=== PATIENT | female | born 1930 | race Caucasian/White ===

== ENCOUNTER 2017-02-13 14:12 | Inpatient (IN) | payer MEDICARE ==
[2017-02-13] MEDS ORDERED: Succinylcholine Chloride 20 MG/ML 10 ml SYRINGE FS ONE (14:19)
[2017-02-13] MEDS ORDERED: Fentanyl 100 MCG/2 ML VIAL ONE ×2 (14:45→15:07)
--- NOTE | 2017-02-13 14:57 | RAD ---
PORTABLE CHEST ONE VIEW: Date: 02-13-17 Time: 2:29 p.m. History: Dyspnea. Unresponsive. FINDINGS: Comparison is made with exam of 08-14-11. A nasogastric tube can be traced into the stomach. The heart size is normal. There is continued eleva tion of the right hemidiaphragm. There are patchy infiltrates in the right lower lobe. No pneumothora x or large effusions were seen. IMPRESSION: Findings are suspicious for aspiration pneumonia. POS: DOUGH
[2017-02-13 15:00] LABS: Actual Bicarbonate (HCO3a) 25.2 mEq/L (22-26); Base Excess (BEa) 0.2 mEq/L (0 (+/-) 2.5); CO2 Tension 42.3 mmHg (35.0-45.0); Calcium, Ionized 1.3 mmol/L (1.12-1.30); Hematocrit-ABG 33.5 % (36.0-47.0); Hemoglobin (Hb) 12.8 g/dL (12.0-16.0); O2 Tension (PaO2) 55.8 mmHg (80.0-100.0); pH, Arterial 7.39 (7.35-7.45)
[2017-02-13] MEDS ORDERED: fentaNYL Citrate/PF 2,000 MCG in Sodium Chloride 0.9% 60 ML IV SCH (15:00)
[2017-02-13 15:03] LABS: Analyzer IN Cardio ER; Puncture Site RBRACH
[2017-02-13 15:05] LABS: ALV-art Gradient 106.725 (0-20)
[2017-02-13 15:09] LABS: Mean Corpuscular HGB CONC 30.4 g/dL (32.0-36.0); Mean Corpuscular Hemoglobin 28.7 pg (27.0-31.0); Mean Corpuscular Volume 94.5 fl (81.0-99.0); Mean Platelet Volume 10.1 fL (7.4-10.4); Platelet Count 251 thou/uL (130-400); RBC Distribution Width 14.4 % (11.5-14.5); Red Blood Cell (RBC) Count 4.53 mill/uL (4.20-5.40); White Blood Cell (WBC) Count 24.8 thou/uL (4.8-10.8)
[2017-02-13] MEDS ORDERED: Acetaminophen 650 MG Suppository ONE (15:29)
[2017-02-13 15:38] LABS: CKMB 1.7 ng/mL (0-6.6); Troponin I 0.083 ng/mL (< 0.028)
[2017-02-13 15:39] LABS: ALT (SGPT) 10 U/L (8-55); AST (SGOT) 15 U/L (5-34); Albumin 2.7 g/dL (3.4-4.8); Alkaline Phosphatase 43 U/L (40-150); Anion Gap 18 mmol/L (10-20); BUN (Urea Nitrogen) 55 mg/dL (9.8-20.1); Bilirubin, Total 1.2 mg/dL (0.2-1.2); CK (CPK) 234 U/L (29-168); Calc. Creatinine Clearance 0 mL/min (70-130); Calcium 9.7 mg/dL (7.8-10.44); Carbon Dioxide 25 mmol/L (23-31); Chloride 124 mmol/L (98-107); Estimated GFR-MDRD 46; Globulin 3.6 g/dL (2.4-3.5); Glucose 136 mg/dL (83-110); Potassium 3.5 mmol/L (3.5-5.1); Protein, Total 6.3 g/dL (6.0-8.3); Sodium 163 mmol/L (136-145)
[2017-02-13] MEDS ORDERED: Vancomycin HCl 500 MG in Sodium Chloride 0.9% 100 ML IVPB SCH ×2 (15:45→20:00)
[2017-02-13 16:06] LABS: Band 7 % (5-11); Lymphocytes 14 % (21-51); MDiff Complete? YES; Monocytes 7 % (0-10); Neutrophil 72 % (42-75); PLT Morphology Comment Appears Adequate
[2017-02-13 16:11] LABS: Bilirubin Small (Negative); Blood, Urine Trace (Negative); Glucose, Urine (Dipstick) Negative (Negative); Leukocyte Negative (Negative); Nitrite Positive (Negative); Protein, Urine (Dipstick) Trace mg/dL (Neg-Trace); Specific Gravity, Urine 1.025 (1.005-1.030); pH, Urine 5.5 (5.0-9.0)
[2017-02-13 16:13] LABS: Clarity CLOUDY (Clear)
[2017-02-13 16:18] LABS: Bacteria/HPF 4+ HPF (None Seen); Hyaline Casts/LPF 4-6 HYALINE CAST LPF (0-3 Hyaline); RBC/HPF 0-3 HPF (0-3); WBC/HPF 0-3 HPF (0-3)
[2017-02-13] MEDS ORDERED: Acetaminophen 650 MG Suppository PR PRN (17:36)
[2017-02-13] MEDS ORDERED: Mag-Al 1200 mg/1200 mg/30 ML UDCUP PO PRN ×2 (17:36)
[2017-02-13] MEDS ORDERED: hydrALAZINE 20 MG/ML VIAL SLOW IVP PRN (17:36)
[2017-02-13] MEDS ORDERED: Acetaminophen 325 MG TAB PO PRN (17:36)
[2017-02-13] MEDS ORDERED: Calcium Carbonate 500 MG ChewTAB PO PRN (17:36)
[2017-02-13] MEDS ORDERED: Ondansetron HCl/PF 4 MG/2 ML Vial IVP PRN ×2 (17:36)
[2017-02-13] MEDS ORDERED: Bisacodyl 5 MG TAB PO PRN ×2 (17:36)
[2017-02-13] MEDS ORDERED: CCU Electrolyte Replacement 1 EACH IVPB ONE (17:36)
[2017-02-13] MEDS ORDERED: Milk Of Magnesia 30 ML UDCUP PO PRN (17:36)
[2017-02-13] MEDS ORDERED: Norepinephrine 8 MG/0.9% NS 250 ML IVPB PRN (17:36)
[2017-02-13] MEDS ORDERED: Lacri-Lube Opth Oint 3.5 GM TUBE EA EYE PRN (17:36)
[2017-02-13] MEDS ORDERED: Senokot 8.6 MG TAB PO PRN (17:36)
[2017-02-13] MEDS ORDERED: Potassium Phosphate 9 MMOL in Sodium Chloride 0.9% 100 ML IVPB PRN (17:53)
[2017-02-13] MEDS ORDERED: Potassium Chloride 20 MEQ TAB PO PRN (17:53)
[2017-02-13] MEDS ORDERED: Potassium Phosphate 15 MMOL in Sodium Chloride 0.9% 250 ML 250 ML IV PRN (17:53)
[2017-02-13] MEDS ORDERED: Potassium Chloride 40 MEQ in Sodium Chloride 0.9% 250 ML 250 ML IVPB PRN (17:53)
[2017-02-13] MEDS ORDERED: Potassium Chloride 40 MEQ in Premix Bag 1 BAG IVPB PRN (17:53)
[2017-02-13] MEDS ORDERED: Magnesium 2 GM/NS 0.9% 100 ML 2 GM in Premix Bag 1 BAG IVPB PRN (17:53)
[2017-02-13] MEDS ORDERED: Potassium Phosphate 12 MMOL in Sodium Chloride 0.9% 250 ML 250 ML IV PRN (17:53)
[2017-02-13] MEDS ORDERED: Magnesium Oxide 400 MG TAB PO PRN ×2 (17:53)
[2017-02-13] MEDS ORDERED: Propofol 1,000 MG/100 ML VIAL IV PRN (17:56)
[2017-02-13] MEDS ORDERED: DISCONTINUE PREVIOUS NARCOTIC PAIN MEDICATIONS AND BENZODIAZEPINES FS SCH (17:56)
[2017-02-13] MEDS ORDERED: Morphine 2 MG/ML SYRINGE SLOW IVP PRN (17:56)
[2017-02-13] MEDS ORDERED: Lorazepam 2 MG/ML VIAL SLOW IVP PRN (17:56)
[2017-02-13] MEDS ORDERED: Piperacillin/Tazobactam 3.375 GM in Sodium Chloride 0.9% 100 ML IVPB SCH (18:00)
[2017-02-13] MEDS ORDERED: Prevnar 13-Val Conj/PF 0.5 ML SYRINGE IM ONE (18:45)
[2017-02-13] MEDS ORDERED: FLU VACC TS2017-18 (>65YR) 0.5 ML SYRINGE IM ONE (18:45)
[2017-02-13] MEDS: Piperacillin-Tazo-Dextrose,Iso 3.375 GM in Premix Bag 1 BAG IVPB SCH ×2 (19:26→23:52)
[2017-02-13] MEDS: Dextrose 5% in Water 1,000 ML IV SCH (19:35)
[2017-02-13] MEDS: Albumin 25% 25 GM/100 ML BOT IVPB SCH (19:44)
[2017-02-13 20:18] LABS: Lactic Acid 4.5 mmol/L (0.5-2.2)
[2017-02-13] MEDS ORDERED: Vancomycin HCl 1 GM in Premix Bag 1 BAG IVPB SCH (21:00)
[2017-02-13] MEDS: Sodium Chloride 0.45% 1,000 ML IV SCH (21:24)
[2017-02-13 23:09] LABS: Sodium 162 mmol/L (136-145)
--- NOTE | 2017-02-13 23:22 | PRG ---
DATE OF SERVICE: 02/13/2017 Ms. Parisi is a very cachectic 86-year-old female. She has an absolutely wonderful who has been involved in her care. Her [id number] was at the bedside and hhfmmm-df-lya was at the [facility] as well. Ms. Parisi lives in a care environment and has for the past 3 years. Her has sadly watched her slowly wasting away for the past 3 years. She is chronically bedridden and occasio faiza put up in a reclining type chair. She does not eat much. The tells me for the past mo nth pretty much every time she eats or drinks anything, she coughs and chokes and has difficulty. She presented with hypoxemia after coughing and choking spell and was subsequently transferred here. She has been intubated. PAST MEDICAL HISTORY: Remarkable for TIA in the past, Parkinson's disease. She has never been hospi talized here before. SOCIAL HISTORY: She is a nonsmoker, nondrinker. She has no drug history. ALLERGIES: She has no drug allergies. MEDICATIONS: Have been reviewed. She is apparently on aspirin, clomipramine, prednisone, Remeron, t razodone, and Xanax. REVIEW OF SYSTEMS: Not obtainable. PHYSICAL EXAMINATION: GENERAL: She is intubated and not awake. VITAL SIGNS: Blood pressure 104/43, heart rate 129, respiratory rate is in the 20s. HEENT: Pupils are equal. Sclerae is anicteric. She is extremely cachectic with temporal muscle was ting. NECK: Without lymphadenopathy. LUNGS: Remarkable for coarse equal breath sounds. HEART: Regular rhythm, no S3. ABDOMEN: Soft and nontender, no guarding, no rigidity. EXTREMITIES: Without asymmetry. She is extremely cachectic. LABORATORY FINDINGS: Chest radiograph shows a chronically elevated hemidiaphragm. All films were co mpared. She does have an alveolar infiltrate or wide base, white count 24.8, hemoglobin 13, platelet s 251. Sodium 163, potassium 3.5, chloride 124, bicarbonate 25, BUN 55, creatinine 1.12, glucose 136 . IMPRESSION: 1. Pneumonia. 2. Severe intravascular volume depletion secondary to her bedridden state and decreased p.o. intake. 3. Cachexia with protein calorie malnutrition secondary to her advanced clinical state. 4. Hyperosmolar state secondary to intravascular volume depletion. 5. Aspiration by history. I had a long discussion with her who appears to be a wonderful accreditation manager. She will be volume resuscitated and mechanically ventilated. I have encouraged her to contemplate do not resus citate status. I have also encouraged him to not consider placing a feeding tube given her bedridden state. I truly believe this is the end of her life and this is her last admission. If we successfu lly wean her from mechanical ventilation. If she survives, I [facility] and this would be the best option as I have explained to the family. I spent probably 40 minutes explaining all this to the family and trying to reassure the that she he has done a wonderful job of caring for her. I do believe she will survive the mechanical ventilation and the hypotension as well as volume resuscitation. I do not believe she will survive the hospital unless it is to go to an inpatient hospice environment. Her was very receptive to my input. Palliative care should be consulted. It is very sad for him that he is watching his slowly pass away and this probably will truly be her last admission. Critical care time independent of the time spent counseling the family was 35 minutes.
[2017-02-14] MEDS: Piperacillin-Tazo-Dextrose,Iso 3.375 GM in Premix Bag 1 BAG IVPB SCH ×3 (00:04→18:21)
[2017-02-14] MEDS: Albumin 25% 25 GM/100 ML BOT IVPB SCH ×4 (01:24→20:16)
[2017-02-14] MEDS: Dextrose 5% in Water 1,000 ML IV SCH ×2 (02:42→09:00)
[2017-02-14] MEDS: Sodium Chloride 0.45% 1,000 ML IV SCH ×4 (02:43→12:35)
[2017-02-14 05:00] LABS: ALT (SGPT) 8 U/L (8-55); AST (SGOT) 15 U/L (5-34); Albumin 3.1 g/dL (3.4-4.8); Alkaline Phosphatase 32 U/L (40-150); Anion Gap 11 mmol/L (10-20); BUN (Urea Nitrogen) 40 mg/dL (9.8-20.1); Bilirubin, Total 1.7 mg/dL (0.2-1.2); Calc. Creatinine Clearance 30 mL/min (70-130); Calcium 7.7 mg/dL (7.8-10.44); Carbon Dioxide 22 mmol/L (23-31); Chloride 121 mmol/L (98-107); Estimated GFR-MDRD 75; Globulin 2.2 g/dL (2.4-3.5); Glucose 76 mg/dL (83-110); Potassium 2.5 mmol/L (3.5-5.1); Protein, Total 5.3 g/dL (6.0-8.3); Sodium 151 mmol/L (136-145)
[2017-02-14 05:13] LABS: Band 22 % (5-11); Hemoglobin 9.6 g/dL (12.0-16.0); Lymphocytes 18 % (21-51); MDiff Complete? YES; Mean Corpuscular HGB CONC 30.8 g/dL (32.0-36.0); Mean Corpuscular Hemoglobin 28.9 pg (27.0-31.0); Mean Corpuscular Volume 93.7 fl (81.0-99.0); Mean Platelet Volume 10.4 fL (7.4-10.4); Monocytes 3 % (0-10); Neutrophil 57 % (42-75); Platelet Count 124 thou/uL (130-400); RBC Distribution Width 14.2 % (11.5-14.5); Red Blood Cell (RBC) Count 3.34 mill/uL (4.20-5.40); White Blood Cell (WBC) Count 13.5 thou/uL (4.8-10.8)
--- NOTE | 2017-02-14 06:46 | CON ---
DATE OF CONSULTATION: 02/13/2017 REQUESTING PHYSICIAN: Cassie Cotto MD REASON FOR CONSULTATION: Severe hypernatremia. IMPRESSION: 1. Severe hypernatremia in the context of . 2. Hypotension - possible sepsis. 3. Advanced age. PLAN: 1. Aggressive fluid resuscitation. Ordinarily, this patient given the hemodynamic instability of this patient, the primary target will be to stabilize hemodynamics normal saline to half no rmal saline boluses will be appropriate. Subsequently, the patient will be on half normal saline ___ __ mL per hour. 2. Repeat sodium in order to re-evaluate and determine correction of her hypernatremia. HISTORY OF PRESENT ILLNESS: History is that of an 86-year-old female patient, who was brought in wit h a history of altered mental status. The patient initially was . In any case, the patient was noted with a sodium level up to 160 consultation . PAST MEDICAL HISTORY: . PAST SURGICAL HISTORY: Could not be obtained from this patient. REVIEW OF SYSTEMS: Could not be done. LABORATORY DATA: Sodium level of 163, chloride 124, creatinine 1.12, BUN of 55. . PHYSICAL EXAMINATION: GENERAL: The patient was found to be sedated and intubated, noted with very hemodynamics. VITAL SIGNS: Blood pressure . HEENT: Unremarkable. . CARDIOVASCULAR: First and second . RESPIRATORY SYSTEM: Clear to auscultation. . LYMPHATICS: No peripheral lymphadenopathy. . SUMMARY: An 86-year-old woman who was brought in with mental status change and was admitted .
[2017-02-14 07:34] LABS: Actual Bicarbonate (HCO3a) 20.6 mEq/L (22-26); Base Excess (BEa) -3.6 mEq/L (0 (+/-) 2.5); Calcium, Ionized 1.1 mmol/L (1.12-1.30); Hemoglobin (Hb) 9.1 g/dL (12.0-16.0); O2 Tension (PaO2) 86.5 mmHg (80.0-100.0)
[2017-02-14 07:35] LABS: Puncture Site RRA
[2017-02-14] MEDS ORDERED: Sterile Water 10 ML ONE (08:35)
[2017-02-14] MEDS: Enoxaparin Sodium 30 MG/0.3 ML SYRINGE SC SCH (08:59)
--- NOTE | 2017-02-14 09:03 | HP ---
DATE OF ADMISSION: 02/13/2017 PRIMARY CARE PHYSICIAN: Renae Bey M.D. CHIEF COMPLAINT: Choking on food. HISTORY OF PRESENTING ILLNESS: Ms. Parisi is an 86-year-old female with past medical his tory of Parkinson's disease as well as TIA who presented from [facility] with the above-me ntioned symptoms. History is mainly obtained by the patient's present in the room as the pat ient is currently intubated and sedated. Electronic medical records have been reviewed and the case has been discussed with the admitting ER physician, Dr. Dobbs. According to Ms. Parisi's , she lives in [facility] and is on a thickened pureed diet. She had one episode of choking on the food about 2 months ago and was brought to the emergency room and was cleared without having any pneumonia. This happened again today and she looked bad wit h shortness of breath. Upon urging of the , [facility] sent [facility] to [facility] emergen cy room where she was found to be in acute respiratory distress with oxygen saturation in the high 80 s on nonrebreather as well as tachycardia. She was promptly intubated in the emergency room and is n ow being admitted to the Critical Care Unit for further evaluation. In the emergency room, further workup revealed leukocytosis as well as lactic acidosis. Her chest x- ray was consistent with right-sided infiltrate, possibly aspiration pneumonia. She is severely dehyd rated with hypernatremia and hyperchloremia. Her urinalysis is also positive for evidence of infecti on. According to the family, the patient is basically bedbound or wheelchair bound. She has advanced Par kinson's and is not able to take care of herself or feed herself. She is largely nonverbal. The patient is currently FULL CODE during my discussion as well as ER physician's discussion with the . PAST MEDICAL HISTORY: 1. Parkinson's disease. 2. History of TIA. PAST SURGICAL HISTORY: Unable to verify. According to , she did not have any surgeries done. PSYCHIATRIC HISTORY: Anxiety and depression. SOCIAL HISTORY: No history of drug, tobacco or alcohol abuse. She is a resident [facility]. FAMILY HISTORY: Unable to verify as the patient is intubated and sedated. is unable to prov kristin much information either. ALLERGIES: No known medication allergies. CURRENT MEDICATIONS: As listed in the ER records include aspirin 81 mg daily, clomipramine 25 mg mariaelena ry other day and prednisone 5 mg daily. REVIEW OF SYSTEMS: Unable to obtain due to intubated and sedated state. PHYSICAL EXAMINATION: VITAL SIGNS: Upon presentation, blood pressure 104/43, pulse of 129, respirations 25, temperature 10 1.7, blood pressure most recent 88/42. GENERAL: The patient appears cachectic. She is intubated and sedated. No acute distress. HEENT: Frontal wasting noticed. Pupils are reactive to light bilaterally in pinpoint. Head is norm ocephalic, atraumatic. Mucous membrane is dry. NECK: Supple without any lymphadenopathy, JVD or bruit. CHEST: Evaluation shows decreased breath sounds bilaterally with diffuse rhonchi. Regular rate and rhythm is regular without any murmur, rubs or gallop. ABDOMEN: Soft, nondistended. No hepatosplenomegaly. EXTREMITIES: Free of any cyanosis, clubbing, or edema. NEUROLOGIC: Hypotonia due to sedation; otherwise, limited exam. SKIN: Free of any rashes or bruises. IMAGING DATA AND LABORATORY DATA: 1. A 12-lead EKG by my review shows sinus tachycardia with heart rate of 134 with normal T waves. 2. Chest x-ray by my review shows patchy infiltrate in the right lower lobe. 3. CBC shows WBCs 24.8 with 72% neutrophils, otherwise unremarkable. 4. Her ABG initially showed pH of 7.3 with pCO2 of 42 and pO2 of 55. 5. Serum chemistries showed sodium 163, chloride 124, BUN 55, creatinine 1.12. Lactic acid is eleva ivonne at 4.2, blood sugar 136. BNP normal at 95. Troponin 0.083 with normal CK-MB and creatinine markel se is 234. 6. Urinalysis shows positive nitrite, squamous epithelial cells along with +4 bacteria. IMPRESSION AND PLAN: 1. Severe sepsis likely secondary to aspiration pneumonia. At this time, she will be empirically st arted on broad spectrum IV antibiotics. She has received Levaquin, vancomycin and Zosyn in the emerg ency room, and we will continue that. She has been intubated for hypoxic respiratory failure and ivan l be admitted to the Critical Care Unit and we will consult Pulmonary Medicine for the vent managemen t as well. Continue IV fluids per the sepsis protocol. Prognosis is guarded at this time. Blood cu ltures have been obtained and we will follow the results. Urine cultures will also be sent. We will also check influenza by PCR. 2. Acute respiratory hypoxic failure likely secondary to pneumonia. Ventilator care as above. CCU protocol will be followed for electrolyte replacement. Vent weaning as per Pulmonary Critical Care M icine. Dr. Carreno has been notified and has seen the patient. 3. Hyperchloremia and hypernatremia. This is evidence of severe dehydration. The patient is on thi ckened water due to dysphagia precautions. She will be resuscitated with D5 water for now. We will also consult Nephrology to follow along. Mild acute kidney injury also collaborates to dehydration. We will monitor her numbers closely. 4. Elevated troponin. This is likely secondary to demand ischemia from severe sepsis. The patient' s denies any previous history of cardiac disease. We will continue to trend serial cardiac e nzymes. 5. Lactic acidosis due to severe sepsis. 6. Code status: FULL CODE. I have discussed this with her and at this time he wants everyt chencho done. 7. Deep venous thrombosis and gastrointestinal prophylaxis. 8. Continue supportive care. Add p.r.n. medication orders. DISPOSITION: Ms. Parisi is being admitted to the Critical Care Unit for acute hypoxic respiratory failure due to aspiration pneumonia and severe sepsis. Prognosis is rather guarded at this point. Andria sanford has been notified with regards to this and he wants to move forward with aggressive therapy at this time. Further management will depend upon her clinical course.
--- NOTE | 2017-02-14 09:12 | RAD ---
SEMIUPRIGHT PORTABLE CHEST 1 VIEW: HISTORY: An 86-year-old female with respiratory insufficiency. FINDINGS: NG tube and endotracheal tubes are in position. There are bilateral interstitial and alveolar nodula r opacity changes with some confluence in the right mid lung zone and right lower lobe, certainly wor risome for pneumonia as well as some left lower lobe retrocardiac parenchymal change. There appears to be slightly worsening of the confluent alveolar parenchymal process in the right lung. IMPRESSION: Progressive bilateral parenchymal changes with worsening confluence in the right mid lung zone certai nly worrisome for bilateral pneumonia. Continued short-term followup for clearing. POS: TPC
[2017-02-14] MEDS: Famotidine/PF 20 mg/2ml Vial SLOW IVP SCH (09:54)
[2017-02-14 11:43] LABS: Anion Gap 12 mmol/L (10-20); BUN (Urea Nitrogen) 28 mg/dL (9.8-20.1); Calc. Creatinine Clearance 38 mL/min (70-130); Carbon Dioxide 18 mmol/L (23-31); Chloride 115 mmol/L (98-107); Estimated GFR-MDRD Greater than 90; Sodium 142 mmol/L (136-145)
[2017-02-14 11:53] LABS: Glucose 46 mg/dL (83-110); Potassium 2.9 mmol/L (3.5-5.1)
[2017-02-14] MEDS ORDERED: Dextrose 50% Abboject 50 ML SYRINGE ONE (12:45)
--- NOTE | 2017-02-14 12:49 | PRG ---
DATE OF SERVICE: 02/14/2017 Ms. Parisi is not awake. She is mechanically ventilated. PHYSICAL EXAMINATION: VITAL SIGNS: Blood pressure 120/50, heart rate 113, respiratory rate 22, oximetry is 95, she is afeb rile. LUNGS: Lungs remarkable for coarse equal breath sounds, more so on the right. HEART: Regular rhythm. ABDOMEN: Abdomen is Soft. Chest radiograph shows bilateral infiltrates now. Her x-ray has worsened. White count 13.5, hemoglobin 9.6, platelets 124. Sodium 142, potassium 2.9, chloride 115, bicarbonate 18, BUN 20, creatinine 0.57, glucose 46. IMPRESSION: 1. Respiratory failure secondary to advanced dementia with weakness, deconditioning and aspiration p neumonia/ 2. Anemia of chronic disease. 3. Hypokalemia. 4. Hyperchloremic acidosis with volume resuscitation. 5. Hypoglycemia, most likely associated with decreased glycogen stores and clinical sepsis. Palliative Care has been consulted. I believe ventilation is reasonable for 2-3 days. I have talked to the and I have explained to him that the best option would be to ventilate her 2-3 days, then withdraw care and see how she does. I have explained to him that I would anticipate she would n ot survive this hospitalization. Family is contemplating do not resuscitate status and everything th at I discussed last night in the emergency department. Critical care time was 30 minutes.
[2017-02-14] MEDS: Dextrose 5 %-0.45 % NaCl 1,000 ML IV SCH (12:50)
--- NOTE | 2017-02-14 15:09 | PDOC.PN ---
- Subjective Encounter Start Date: 02/14/17 Encounter Start Time: 15:07 Subjective: remains intubated w/o acute events overnight - Objective MAR Reviewed: Yes Vital Signs & Weight: Vital Signs (12 hours) Temp Pulse Resp BP Pulse Ox 02/14/17 14:50 104 H 113/52 L 02/14/17 14:49 94 18 99 02/14/17 10:28 104 H 139/51 L 02/14/17 10:27 105 H 23 H 97 02/14/17 07:13 98 130/52 L 02/14/17 07:11 98 19 99 02/14/17 06:00 99.1 F 02/14/17 04:00 17 Weight Admit Weight 76 lb Weight 76 lb 0.952 oz Most Recent Monitor Data Heart Rate from ECG 90 NIBP 106/48 NIBP BP-Mean 74 Respiration from ECG 22 SpO2 100 I&O: 02/13/17 02/14/17 02/15/17 06:59 06:59 06:59 Intake Total 3817 Output Total 215 Balance 3602 Result Diagrams: 02/14/17 04:10 02/14/17 11:13 Additional Labs: Accuchecks 02/14/17 13:14 POC Glucose 190 H Microbiology 02/13/17 21:31 Nasopharynx Influenza Types A,B Direct EIA - Final 02/13/17 16:47 Venous blood - Right Foot Blood Culture - Preliminary Specimen has been received and culture in progress. No Growth to date. 02/13/17 16:47 Venous blood - Left Foot Blood Culture - Preliminary Specimen has been received and culture in progress. No Growth to date. Phys Exam - Physical Examination Constitutional: NAD HEENT: PERRLA, moist MMs, sclera anicteric ETT Neck: no JVD Respiratory: no wheezing, no rales, no rhonchi coarse breath sounds b/l Cardiovascular: RRR, no significant murmur Gastrointestinal: soft, non-tender, no distention, positive bowel sounds Musculoskeletal: no edema, pulses present not moving Dx/Plan (1) Acute respiratory failure Code(s): J96.00 - ACUTE RESPIRATORY FAILURE, UNSP W HYPOXIA OR HYPERCAPNIA Status: Acute (2) Sepsis Code(s): A41.9 - SEPSIS, UNSPECIFIED ORGANISM Status: Acute (3) PNA (pneumonia) Code(s): J18.9 - PNEUMONIA, UNSPECIFIED ORGANISM Status: Acute Qualifiers: Pneumonia type: aspiration pneumonia Laterality: bilateral (4) Hypernatremia Code(s): E87.0 - HYPEROSMOLALITY AND HYPERNATREMIA Status: Acute (5) Hypokalemia Code(s): E87.6 - HYPOKALEMIA Status: Acute (6) CARLOS (acute kidney injury) Code(s): N17.9 - ACUTE KIDNEY FAILURE, UNSPECIFIED Status: Acute (7) Hypoglycemia Code(s): E16.2 - HYPOGLYCEMIA, UNSPECIFIED Status: Acute (8) Parkinson disease Code(s): G20 - PARKINSON'S DISEASE Status: Acute - Plan ravi catheter, continue antibiotics, respiratory therapy, DVT proph w/SCDs severely ill. would not be unexpected.cont full supportive care for no -: Vent per PCCM. -: cont broad sp[ectrun IV ABx,nebs etc. -: sodium improving w 1/2 NS.nephrology following -: replace & recheck Potassium.check Mag as well * .Renal Fx and leucocytosis improving. * daily labs,CXR etc * Guarded prognosis. * am labs Review of Systems - Review of Systems Other: unobtainable due to intubated state - Medications/Allergies Allergies/Adverse Reactions: Allergies Allergy/AdvReac Type Severity Reaction Status Date / Time No Known Drug Allergies Allergy Verified 02/13/17 17:26 Medications: Current Medications Acetaminophen (Tylenol) 650 mg PO Q4H PRN PRN Reason: Headache/Fever or Pain Acetaminophen (Tylenol) 650 mg [place] Q4H PRN PRN Reason: Headache/Fever or Pain Al Hydroxide/Mg Hydroxide (Maalox) 30 ml PO Q8H PRN PRN Reason: Indigestion Al Hydroxide/Mg Hydroxide (Maalox) 30 ml PO Q6H PRN PRN Reason: Heartburn or Indigestion Albumin Human (Albumin 25%) 25 gm IVPB 0200,0800,1400,2000 [facility] Stop: 02/15/17 20:01 Last Admin: 02/14/17 14:39 Dose: 25 gm Albuterol/Ipratropium (Duoneb) 3 ml NEB [id number] PRN PRN Reason: SOB &/or Wheezing Albuterol/Ipratropium (Duoneb) 3 ml NEB [id number] DIPAK Last Admin: 02/14/17 14:49 Dose: 3 ml Bisacodyl (Dulcolax) 10 mg PO DAILYPRN PRN PRN Reason: Constipation Bisacodyl (Dulcolax) 10 mg PO DAILYPRN PRN PRN Reason: Constipation Calcium Carbonate (Tums) 1,000 mg PO Q4H PRN PRN Reason: Heartburn or Indigestion Clonidine (Catapres) 0.1 mg PO Q4H PRN PRN Reason: Systolic BP > 160 Enoxaparin Sodium (Lovenox) 30 mg SC 0900 [facility] Last Admin: 02/14/17 08:59 Dose: 30 mg Famotidine (Pepcid) 20 mg SLOW IVP DAILY [facility] Last Admin: 02/14/17 09:54 Dose: Not Given Fentanyl Citrate 2,000 mcg/ (Sodium Chloride) 100 mls @ 0 mls/hr IV INF [facility] PRN Reason: As Directed Norepinephrine Bitartrate (Levophed) 250 mls @ 0 mls/hr IVPB PRN PRN; Protocol ; Titrate PRN Reason: To maintain MAP > 65 Potassium Chloride 40 meq/ (Sodium Chloride) 270 mls @ 135 mls/hr IVPB ASDIR PRN PRN Reason: FOR SERUM K+ 2.5 - 3.5 Last Admin: 02/14/17 06:36 Dose: 270 mls Potassium Chloride 40 meq/ (Device) 100 mls @ 50 mls/hr IVPB ASDIR PRN PRN Reason: FOR SERUM K+ 2.5 - 3.5 Magnesium Sulfate 1 gm/ Sodium (Chloride) 102 mls @ 102 mls/hr IV PRN PRN PRN Reason: MAG LEVEL 1.4 - 2.0 Magnesium Sulfate 2 gm/ Device 100 mls @ 100 mls/hr IVPB ASDIR PRN PRN Reason: MAGNESIUM < 1.4 Potassium Phosphate 9 mmol/ (Sodium Chloride) 103 mls @ 25.75 mls/hr IVPB ASDIR PRN PRN Reason: Phosphate 1.0-1.8 Potassium Phosphate 12 mmol/ (Sodium Chloride) 254 mls @ 63.5 mls/hr IV ASDIR PRN PRN Reason: Serum phosphate 0.5-0.9 Potassium Phosphate 15 mmol/ (Sodium Chloride) 255 mls @ 63.75 mls/hr IV ASDIR PRN PRN Reason: Serum Phos < 0.5 Fentanyl Citrate (Fentanyl Bolus) 250 mls @ 0 mls/hr IVPB PRN PRN; As Directed PRN Reason: Breakthrough pain Stop: 03/15/17 17:56 Piperacillin/Tazobactam/ (Dextrose 3.375 gm/ Device) 50 mls @ 100 mls/hr IVPB Q6HR [facility] Last Admin: 02/14/17 12:35 Dose: 50 mls Dextrose/Sodium Chloride (D5 1/2 Ns) 1,000 mls @ 100 mls/hr IV .Q10H [facility] Last Admin: 02/14/17 12:50 Dose: 1,000 mls Lorazepam (Ativan) 2 mg SLOW IVP Q2H PRN PRN Reason: Anxiety to achieve Sandy 2-3 Stop: 03/15/17 17:56 Magnesium Hydroxide (Milk Of Magnesium) 30 ml PO Q8H PRN PRN Reason: Constipation Magnesium Oxide (Magnesium Oxide) 400 mg PO BIDPRN PRN PRN Reason: FOR SERUM MAG 1.4 - 2.0 Magnesium Oxide (Magnesium Oxide) 800 mg PO PRN PRN PRN Reason: FOR SERUM MAG < 1.4 Methylprednisolone Sodium Succinate (Solu-Medrol) 40 mg IVP Q12HR [facility] Last Admin: 02/14/17 08:59 Dose: 40 mg Mineral Oil/White Petrolatum (Lacri-Lube Ointment) 0 gm EA EYE PRN PRN PRN Reason: Dry Eyes Miscellaneous Medication (Phos-Nak) 1 pkt PO TIDPRN PRN PRN Reason: FOR PHOS LEVEL 1.0 - 1.8 Miscellaneous Medication (Phos-Nak) 2 pkt PO TIDPRN PRN PRN Reason: FOR PHOS LEVEL 0.5 - 1.0 Morphine Sulfate (Morphine) 2 mg SLOW IVP Q2H PRN PRN Reason: Breakthrough pain Stop: 03/15/17 17:56 Discontinue Previous Narcotic Pain Medications And Benzodiazepines 1 each FS .ONE [facility] Stop: 03/15/17 17:56 Ondansetron HCl (Zofran) 4 mg IVP Q6H PRN PRN Reason: Nausea/Vomiting Ondansetron HCl (Zofran) 4 mg IVP Q6H PRN PRN Reason: Nausea/Vomiting Potassium Chloride (K-Dur) 40 meq PO ASDIR PRN PRN Reason: FOR SERUM K+ 2.5 - 3.5 Potassium Chloride (Klor-Con) 40 meq PER TUBE ASDIR PRN PRN Reason: FOR SERUM K+ 2.5-3.5 Potassium Chloride (Klor-Con) 40 meq PO Q4HR DIPAK Stop: 02/14/17 17:01 Last Admin: 02/14/17 12:47 Dose: 40 meq Propofol (Diprivan) 1,000 mg IV INF PRN; Protocol PRN Reason: TO ACHIEVE SANDY SCORE 2-3 Stop: 03/15/17 17:56 Senna (Senokot) 2 tab PO HSPRN PRN PRN Reason: Constipation Sodium Chloride (Flush - Normal Saline) 10 ml IVF PRN PRN PRN Reason: Saline Flush
[2017-02-15] MEDS: cloNIDine 0.1 MG TAB PO PRN ×2 (02:20→06:35)
[2017-02-15] MEDS: Albumin 25% 25 GM/100 ML BOT IVPB SCH ×3 (02:20→14:00)
[2017-02-15] MEDS: Piperacillin-Tazo-Dextrose,Iso 3.375 GM in Premix Bag 1 BAG IVPB SCH ×4 (05:01→12:51)
[2017-02-15] MEDS: Dextrose 5 %-0.45 % NaCl 1,000 ML IV SCH ×3 (05:01→15:00)
[2017-02-15 05:54] LABS: ALT (SGPT) 16 U/L (8-55); AST (SGOT) 34 U/L (5-34); Albumin 3.8 g/dL (3.4-4.8); Alkaline Phosphatase 51 U/L (40-150); Anion Gap 15 mmol/L (10-20); BUN (Urea Nitrogen) 21 mg/dL (9.8-20.1); Bilirubin, Total 1.4 mg/dL (0.2-1.2); Calc. Creatinine Clearance 40 mL/min (70-130); Carbon Dioxide 17 mmol/L (23-31); Chloride 121 mmol/L (98-107); Estimated GFR-MDRD 79; Globulin 2.6 g/dL (2.4-3.5); Glucose 190 mg/dL (83-110); Potassium 4.9 mmol/L (3.5-5.1); Protein, Total 6.4 g/dL (6.0-8.3); Sodium 148 mmol/L (136-145)
[2017-02-15 06:31] LABS: Band 23 % (5-11); Hemoglobin 8.9 g/dL (12.0-16.0); Lymphocytes 5 % (21-51); MDiff Complete? YES; Mean Corpuscular HGB CONC 32.2 g/dL (32.0-36.0); Mean Corpuscular Hemoglobin 29.5 pg (27.0-31.0); Mean Corpuscular Volume 91.5 fl (81.0-99.0); Mean Platelet Volume 11.3 fL (7.4-10.4); Monocytes 2 % (0-10); Neutrophil 70 % (42-75); PLT Morphology Comment Appears Decreased; Platelet Count 92 thou/uL (130-400); RBC Distribution Width 14.1 % (11.5-14.5); Red Blood Cell (RBC) Count 3.02 mill/uL (4.20-5.40); White Blood Cell (WBC) Count 12.7 thou/uL (4.8-10.8)
--- NOTE | 2017-02-15 07:06 | PRG ---
SUBJECTIVE: The patient is seen and examined, still on life support. Noted with following vital sig ns. OBJECTIVE: VITAL SIGNS: Hemodynamically stable with blood pressure of 125/78, respiratory rate of 16. HEENT: Remarkable for endotracheal tube in place. CARDIOVASCULAR SYSTEM: First and second heart sounds heard. RESPIRATORY SYSTEM: . DIGESTIVE SYSTEM: Revealed a benign abdomen. Positive bowel sounds. EXTREMITIES: No peripheral edema. SKIN: No new gross rash. LABORATORY INVESTIGATION: Showed a sodium OF 142, potassium of 2.9, bicarb of 18. IMPRESSION: 1. Severe hyponatemia IV fluids. 2. . 3. Sepsis. PLAN: 1. Since sodium has dropped down to 142, we will now change his IV fluid to 100 mL per hour, though continue with D5 half-normal saline.. 2. Aggressively replete the potassium. 3. Further management will be dependent on the clinical course.
[2017-02-15 08:07] LABS: Actual Bicarbonate (HCO3a) 17.2 mEq/L (22-26); Base Excess (BEa) -5.8 mEq/L (0 (+/-) 2.5); Calcium, Ionized 1.1 mmol/L (1.12-1.30); Hematocrit-ABG 24.3 % (36.0-47.0); Hemoglobin (Hb) 8.6 g/dL (12.0-16.0); O2 Tension (PaO2) 148.2 mmHg (80.0-100.0); pH, Arterial 7.45 (7.35-7.45)
[2017-02-15 08:12] LABS: CO2 Tension 25.5 mmHg (35.0-45.0); Puncture Site RBRACH
[2017-02-15 08:13] LABS: ALV-art Gradient 107.125 (0-20)
[2017-02-15] MEDS ORDERED: Sterile Water 10 ML ONE (09:27)
[2017-02-15] MEDS: Famotidine/PF 20 mg/2ml Vial SLOW IVP SCH (09:30)
[2017-02-15] MEDS: Enoxaparin Sodium 30 MG/0.3 ML SYRINGE SC SCH (09:31)
--- NOTE | 2017-02-15 10:36 | RAD ---
PORTABLE CHEST: HISTORY: On ventilator. Shortness of breath. COMPARISON: 02/14/17. FINDINGS: A large right effusion. Bilateral infiltrates. Exam is degraded due to poor positioning. ET tube h as tip just above cosme. NG tube is noted. IMPRESSION: Probably not significantly changed from yesterday given the difference in position. POS: CODI
[2017-02-15] MEDS ORDERED: Labetalol HCl 100 MG/20 ML VIAL SLOW IVP PRN (14:22)
[2017-02-15] MEDS ORDERED: Pancrelipase DR 12000 1 CAP FS PRN (14:33)
[2017-02-15] MEDS ORDERED: Sodium Bicarbonate Tab 325 MG TAB PER TUBE PRN (14:33)
--- NOTE | 2017-02-15 14:34 | PRG ---
DATE OF SERVICE: 02/15/2017 SERVICE: Pulmonary Medicine. INTERVAL HISTORY: The patient is doing fine from a respiratory and cardiovascular standpoint. Blood pressure has been okay. Her heart rate is fine. Her oxygen requirements are actually decreasing. We were able to back off on support off the ventilator. That being said, the big picture is that the patient has essentially end-stage dementia and is nearly bedbound. She has extremely poor functiona l status. She is right at the end of her life. I talked briefly with about this, but he is adamant that if I can keep her alive in her current state for an additional 5-10 years, and that is w hat he would want. PHYSICAL EXAMINATION: VITAL SIGNS: Afebrile with T-max of 99.7. Pulse 106, blood pressure 140/77, respirations 25, satura tion 100% on 27% FiO2 and a PEEP of 5. GENERAL: The patient is intubated. She required absolutely no sedation. HEENT: Normocephalic, atraumatic. Sclerae are white, conjunctivae pink. Oral and nasal mucosa is m oist without lesions. LUNGS: Decent air entry. There are rhonchi present bilaterally. No wheezing. HEART: Normal rate, regular. ABDOMEN: Soft, nontender, nondistended. Bowel sounds positive. MUSCULOSKELETAL: No cyanosis or clubbing. There is 1-2+ pitting at the bilateral lower extremities, which is worse at the sacrum. GENITOURINARY: Lopez catheter in place. NEUROLOGIC: Grossly nonfocal. She moves all four extremities. She grimaces with noxious stimuli. She is comfortably overbreathing the ventilator. Brainstem reflexes are working fine. IMAGING: Chest x-ray demonstrates relatively stable chest. There is a pleural effusion which is now evident because the patient is more severely rotated onto her right side. Infiltrate is also presen t. ASSESSMENT: 1. Acute hypoxic respiratory failure. 2. Healthcare-associated pneumonia. 3. Pleural effusion. 4. Severe sepsis. 5. Protein calorie malnutrition, severe. 6. Hypernatremia. 7. Debility. 8. Deconditioning. 9. Failure to thrive. PLAN: We will initiate tube feeds. I will check phosphorus. Multiple ventilator adjustments have b een made to provide the patient with more comfortable type of support. Pulmonary will continue to fo llow while she remains in this location. If she fails to clear inflammatory profile, thoracentesis m ay need to be considered to make certain this base is not involved with infection. Tomorrow, we will perform a spontaneous breathing trial to determine whether or not she is ready for extubation. That being said at this point, it is the mentation and extra sleepiness that prevents me from extubating her.
--- NOTE | 2017-02-15 15:31 | PDOC.PN ---
- Subjective Encounter Start Date: 02/15/17 Encounter Start Time: 15:29 Subjective: remains intubated .not waking despite no sedation -: discussed w at bedside - Objective MAR Reviewed: Yes Vital Signs & Weight: Vital Signs (12 hours) Temp Pulse Resp BP Pulse Ox 02/15/17 15:01 99 139/73 02/15/17 12:00 24 H 02/15/17 11:21 76 145/64 H 02/15/17 10:00 25 H 02/15/17 08:00 98.2 F 87 25 H 97 02/15/17 07:56 56 L 170/47 H 02/15/17 06:35 175/57 H 02/15/17 06:00 23 H 02/15/17 04:00 23 H Weight Admit Weight 76 lb Weight 98 lb 5.219 oz Most Recent Monitor Data Heart Rate from ECG 101 NIBP 139/73 NIBP BP-Mean 94 Respiration from ECG 21 SpO2 100 I&O: 02/14/17 02/15/17 02/16/17 06:59 06:59 06:59 Intake Total 3817 3779.1 Output Total 215 1364 548 Balance 3602 2415.1 -548 Result Diagrams: 02/15/17 04:44 02/15/17 04:44 Additional Labs: Accuchecks 02/14/17 16:21 POC Glucose 146 H Microbiology 02/13/17 21:31 Nasopharynx Influenza Types A,B Direct EIA - Final 02/13/17 16:47 Venous blood - Right Foot Blood Culture - Preliminary Coagulase Neg Staphylococcus 02/13/17 16:47 Venous blood - Left Foot Blood Culture - Preliminary Specimen has been received and culture in progress. No Growth to date. 02/13/17 16:47 Venous blood - Left Foot Blood Culture - Preliminary NO GROWTH AT 48 HOURS Laboratory Tests 02/13/17 02/13/17 02/14/17 15:00 22:19 04:10 Sodium 163 H* 162 H* 151 H 02/14/17 02/15/17 11:13 04:44 Sodium 142 148 H Phys Exam - Physical Examination Constitutional: NAD HEENT: PERRLA, moist MMs, sclera anicteric, oral pharynx no lesions Neck: no JVD decreased and caorse at bases Cardiovascular: RRR, no significant murmur Gastrointestinal: soft, non-tender, no distention, positive bowel sounds Musculoskeletal: no edema, pulses present Dx/Plan (1) Acute respiratory failure Code(s): J96.00 - ACUTE RESPIRATORY FAILURE, UNSP W HYPOXIA OR HYPERCAPNIA Status: Acute (2) Sepsis Code(s): A41.9 - SEPSIS, UNSPECIFIED ORGANISM Status: Acute (3) PNA (pneumonia) Code(s): J18.9 - PNEUMONIA, UNSPECIFIED ORGANISM Status: Acute Qualifiers: Pneumonia type: aspiration pneumonia Laterality: bilateral (4) Hypernatremia Code(s): E87.0 - HYPEROSMOLALITY AND HYPERNATREMIA Status: Acute (5) Hypokalemia Code(s): E87.6 - HYPOKALEMIA Status: Acute (6) CARLOS (acute kidney injury) Code(s): N17.9 - ACUTE KIDNEY FAILURE, UNSPECIFIED Status: Acute (7) Hypoglycemia Code(s): E16.2 - HYPOGLYCEMIA, UNSPECIFIED Status: Acute (8) Parkinson disease Code(s): G20 - PARKINSON'S DISEASE Status: Acute - Plan ravi catheter, continue antibiotics, respiratory therapy, incentive spirometry , out of bed/ambulate, DVT proph w/SCDs Vent support per PCCM.WBC improving.cont IV Abx -: follow Cx results -: sodium improving w 1/2 NS.nephrology following -: am labs -: guraded prognosis. made aware * . Review of Systems - Review of Systems Other: unobtainable due to encephalopathy,intubation - Medications/Allergies Allergies/Adverse Reactions: Allergies Allergy/AdvReac Type Severity Reaction Status Date / Time No Known Drug Allergies Allergy Verified 02/13/17 17:26 Medications: Current Medications Acetaminophen (Tylenol) 650 mg PO Q4H PRN PRN Reason: Headache/Fever or Pain Acetaminophen (Tylenol) 650 mg [place] Q4H PRN PRN Reason: Headache/Fever or Pain Last Admin: 02/15/17 01:22 Dose: 650 mg Al Hydroxide/Mg Hydroxide (Maalox) 30 ml PO Q8H PRN PRN Reason: Indigestion Al Hydroxide/Mg Hydroxide (Maalox) 30 ml PO Q6H PRN PRN Reason: Heartburn or Indigestion Albuterol/Ipratropium (Duoneb) 3 ml NEB [id number] DIPAK Lipase/Protease/Amylase ([place] [id number]) 1 cap FS .PER PROTOCOL PRN PRN Reason: TUBE OCCLUSION PROTOCOL Bisacodyl (Dulcolax) 10 mg PO DAILYPRN PRN PRN Reason: Constipation Bisacodyl (Dulcolax) 10 mg PO DAILYPRN PRN PRN Reason: Constipation Calcium Carbonate (Tums) 1,000 mg PO Q4H PRN PRN Reason: Heartburn or Indigestion Enoxaparin Sodium (Lovenox) 30 mg SC 0900 [facility] Last Admin: 02/15/17 09:31 Dose: 30 mg Famotidine (Pepcid) 20 mg SLOW IVP DAILY [facility] Last Admin: 02/15/17 09:30 Dose: 20 mg Potassium Chloride 40 meq/ (Sodium Chloride) 270 mls @ 135 mls/hr IVPB ASDIR PRN PRN Reason: FOR SERUM K+ 2.5 - 3.5 Last Admin: 02/14/17 06:36 Dose: 270 mls Potassium Chloride 40 meq/ (Device) 100 mls @ 50 mls/hr IVPB ASDIR PRN PRN Reason: FOR SERUM K+ 2.5 - 3.5 Magnesium Sulfate 1 gm/ Sodium (Chloride) 102 mls @ 102 mls/hr IV PRN PRN PRN Reason: MAG LEVEL 1.4 - 2.0 Magnesium Sulfate 2 gm/ Device 100 mls @ 100 mls/hr IVPB ASDIR PRN PRN Reason: MAGNESIUM < 1.4 Potassium Phosphate 9 mmol/ (Sodium Chloride) 103 mls @ 25.75 mls/hr IVPB ASDIR PRN PRN Reason: Phosphate 1.0-1.8 Potassium Phosphate 12 mmol/ (Sodium Chloride) 254 mls @ 63.5 mls/hr IV ASDIR PRN PRN Reason: Serum phosphate 0.5-0.9 Potassium Phosphate 15 mmol/ (Sodium Chloride) 255 mls @ 63.75 mls/hr IV ASDIR PRN PRN Reason: Serum Phos < 0.5 Piperacillin/Tazobactam/ (Dextrose 3.375 gm/ Device) 50 mls @ 100 mls/hr IVPB Q6HR [facility] Last Admin: 02/15/17 12:51 Dose: 50 mls Dextrose/Sodium Chloride (D5 1/2 Ns) 1,000 mls @ 50 mls/hr IV .Q20H DIPAK Labetalol HCl (Normodyne) 20 mg SLOW IVP Q15MIN PRN PRN Reason: SBP GREATER THAN 160 Magnesium Hydroxide (Milk Of Magnesium) 30 ml PO Q8H PRN PRN Reason: Constipation Magnesium Oxide (Magnesium Oxide) 400 mg PO BIDPRN PRN PRN Reason: FOR SERUM MAG 1.4 - 2.0 Magnesium Oxide (Magnesium Oxide) 800 mg PO PRN PRN PRN Reason: FOR SERUM MAG < 1.4 Mineral Oil/White Petrolatum (Lacri-Lube Ointment) 0 gm EA EYE PRN PRN PRN Reason: Dry Eyes Miscellaneous Medication (Phos-Nak) 1 pkt PO TIDPRN PRN PRN Reason: FOR PHOS LEVEL 1.0 - 1.8 Miscellaneous Medication (Phos-Nak) 2 pkt PO TIDPRN PRN PRN Reason: FOR PHOS LEVEL 0.5 - 1.0 Morphine Sulfate (Morphine) 2 mg SLOW IVP Q2H PRN PRN Reason: Breakthrough pain Stop: 03/15/17 17:56 Discontinue Previous Narcotic Pain Medications And Benzodiazepines 1 each FS .ONE DIPAK Stop: 03/15/17 17:56 Ondansetron HCl (Zofran) 4 mg IVP Q6H PRN PRN Reason: Nausea/Vomiting Ondansetron HCl (Zofran) 4 mg IVP Q6H PRN PRN Reason: Nausea/Vomiting Potassium Chloride (K-Dur) 40 meq PO ASDIR PRN PRN Reason: FOR SERUM K+ 2.5 - 3.5 Potassium Chloride (Klor-Con) 40 meq PER TUBE ASDIR PRN PRN Reason: FOR SERUM K+ 2.5-3.5 Prednisone (Prednisone) 20 mg PO QAM-[facility] Propofol (Diprivan) 1,000 mg IV INF PRN; Protocol PRN Reason: TO ACHIEVE SANDY SCORE 2-3 Stop: 03/15/17 17:56 Senna (Senokot) 2 tab PO HSPRN PRN PRN Reason: Constipation Sodium Bicarbonate (Bicarbonate, Sodium) 650 mg PER TUBE .PER PROTOCOL PRN PRN Reason: ENTERAL TUBE OCCLUSION Sodium Chloride (Flush - Normal Saline) 10 ml IVF PRN PRN PRN Reason: Saline Flush
[2017-02-15] MEDS ORDERED: Sodium Phosphate 30 MMOL in Sodium Chloride 0.9% 250 ML 250 ML IVPB SCH (18:00)
[2017-02-15] MEDS ORDERED: Piperacillin-Tazo-Dextrose,Iso 3.375 GM in Sodium Chloride 0.9% 100 ML IVPB SCH (18:00)
[2017-02-15] MEDS: Piperacillin/Tazobactam 3.375 GM in Sodium Chloride 0.9% 100 ML IVPB SCH ×2 (19:25→23:08)
[2017-02-15] MEDS ORDERED: Vancomycin HCl 500 MG in Sodium Chloride 0.9% 100 ML IVPB SCH (20:00)
--- NOTE | 2017-02-15 23:44 | PRG ---
DATE OF SERVICE: 02/15/2017 SUBJECTIVE: The patient was seen and examined, still on life support. PHYSICAL EXAMINATION: VITAL SIGNS: Blood pressure 150/80, pulse of 94, respiratory rate of 18. HEENT: Remarkable for endotracheal tube in place. CARDIOVASCULAR: First and second heart sounds were heard. RESPIRATORY: Vented sounds. DIGESTIVE: Revealed a benign abdomen. EXTREMITIES: Show no significant peripheral edema. LABORATORY INVESTIGATION: Showed sodium of 148. IMPRESSION: Hypernatremia, which resolved, seems to be now. PLAN: 1. Adjust patient's IV fluid. 2. Increase free water repletion. 3. Further management to be dependent on the clinical course.
[2017-02-16] MEDS ORDERED: Clopidogrel Bisulfate 75 MG TAB ONE (05:14)
[2017-02-16] MEDS: Piperacillin/Tazobactam 3.375 GM in Sodium Chloride 0.9% 100 ML IVPB SCH ×3 (05:20→18:48)
[2017-02-16] MEDS: Dextrose 5 %-0.45 % NaCl 1,000 ML IV SCH (05:20)
[2017-02-16 05:54] LABS: Anion Gap 13 mmol/L (10-20); BUN (Urea Nitrogen) 17 mg/dL (9.8-20.1); Calc. Creatinine Clearance 43 mL/min (70-130); Carbon Dioxide 20 mmol/L (23-31); Chloride 122 mmol/L (98-107); Estimated GFR-MDRD Greater than 90; Glucose 121 mg/dL (83-110); Magnesium 1.8 mg/dL (1.6-2.6); Phosphorus 2.1 mg/dL (2.3-4.7); Potassium 2.7 mmol/L (3.5-5.1); Sodium 152 mmol/L (136-145)
[2017-02-16 06:22] LABS: Hemoglobin 9.2 g/dL (12.0-16.0); Lymphocytes 4 % (21-51); MDiff Complete? YES; Mean Corpuscular HGB CONC 32.2 g/dL (32.0-36.0); Mean Corpuscular Hemoglobin 28.9 pg (27.0-31.0); Mean Corpuscular Volume 89.8 fl (81.0-99.0); Mean Platelet Volume 10.2 fL (7.4-10.4); Monocytes 2 % (0-10); Neutrophil 94 % (42-75); PLT Morphology Comment Appears Adequate; Platelet Count 147 thou/uL (130-400); RBC Distribution Width 14.1 % (11.5-14.5); Red Blood Cell (RBC) Count 3.18 mill/uL (4.20-5.40); White Blood Cell (WBC) Count 21.9 thou/uL (4.8-10.8)
[2017-02-16] MEDS: Famotidine/PF 20 mg/2ml Vial SLOW IVP SCH (10:34)
[2017-02-16] MEDS: Potassium Chloride 40 MEQ in Dextrose 5% in Water 1,000 ML IV SCH ×2 (10:34)
[2017-02-16] MEDS: predniSONE 20 MG TAB PO SCH (10:34)
[2017-02-16] MEDS: Enoxaparin Sodium 30 MG/0.3 ML SYRINGE SC SCH (10:45)
--- NOTE | 2017-02-16 14:51 | PDOC.PN ---
- Subjective Encounter Start Date: 02/16/17 Encounter Start Time: 14:50 Subjective: remains intubated and minimally responsive - Objective MAR Reviewed: Yes Vital Signs & Weight: Vital Signs (12 hours) Temp Pulse Resp BP Pulse Ox 02/16/17 12:08 95 118/49 L 02/16/17 08:00 98 F 86 94 L 02/16/17 07:44 86 132/64 02/16/17 06:00 20 02/16/17 04:00 18 Weight Admit Weight 76 lb Weight 93 lb 7.616 oz Most Recent Monitor Data Heart Rate from ECG 92 NIBP 124/59 NIBP BP-Mean 72 Respiration from ECG 21 SpO2 98 I&O: 02/15/17 02/16/17 02/17/17 06:59 06:59 06:59 Intake Total 3779.1 2450 Output Total 1364 1283 50 Balance 2415.1 1167 -50 Result Diagrams: 02/16/17 05:15 02/16/17 05:15 Additional Labs: Microbiology 02/13/17 21:31 Nasopharynx Influenza Types A,B Direct EIA - Final 02/13/17 16:47 Venous blood - Right Foot Blood Culture - Final Coagulase Neg Staphylococcus 02/13/17 16:47 Venous blood - Left Foot Blood Culture - Preliminary NO GROWTH AT 48 HOURS Phys Exam - Physical Examination Constitutional: NAD HEENT: PERRLA, moist MMs, sclera anicteric, oral pharynx no lesions Neck: no nodes, no JVD, supple, full ROM Respiratory: no wheezing, no rales, no rhonchi, clear to auscultation bilateral Cardiovascular: RRR, no significant murmur Gastrointestinal: soft, non-tender, no distention, positive bowel sounds Musculoskeletal: no edema, pulses present left arm contracture Deviation from normal: encephalopathic Skin: no rash Dx/Plan (1) Acute respiratory failure Code(s): J96.00 - ACUTE RESPIRATORY FAILURE, UNSP W HYPOXIA OR HYPERCAPNIA Status: Acute (2) Sepsis Code(s): A41.9 - SEPSIS, UNSPECIFIED ORGANISM Status: Acute (3) PNA (pneumonia) Code(s): J18.9 - PNEUMONIA, UNSPECIFIED ORGANISM Status: Acute Qualifiers: Pneumonia type: aspiration pneumonia Laterality: bilateral (4) Hypernatremia Code(s): E87.0 - HYPEROSMOLALITY AND HYPERNATREMIA Status: Acute (5) Hypokalemia Code(s): E87.6 - HYPOKALEMIA Status: Acute (6) CARLOS (acute kidney injury) Code(s): N17.9 - ACUTE KIDNEY FAILURE, UNSPECIFIED Status: Acute (7) Hypoglycemia Code(s): E16.2 - HYPOGLYCEMIA, UNSPECIFIED Status: Acute (8) Parkinson disease Code(s): G20 - PARKINSON'S DISEASE Status: Acute - Plan continue antibiotics, respiratory therapy, incentive spirometry, DVT proph w/ SCDs renal Fx improving.monitor .on IVF. -: change IVF for peristant hypernatremia.nephrology following -: empiric ABx.follow Cx. -: vent per PCCM.not awake enough for SBT -: am labs.guarded prognosis.full code per * . Review of Systems - Review of Systems Other: unobtainable due to encephalopathy - Medications/Allergies Allergies/Adverse Reactions: Allergies Allergy/AdvReac Type Severity Reaction Status Date / Time No Known Drug Allergies Allergy Verified 02/13/17 17:26 Medications: Current Medications Acetaminophen (Tylenol) 650 mg PO Q4H PRN PRN Reason: Headache/Fever or Pain Acetaminophen (Tylenol) 650 mg [place] Q4H PRN PRN Reason: Headache/Fever or Pain Last Admin: 02/15/17 01:22 Dose: 650 mg Al Hydroxide/Mg Hydroxide (Maalox) 30 ml PO Q8H PRN PRN Reason: Indigestion Al Hydroxide/Mg Hydroxide (Maalox) 30 ml PO Q6H PRN PRN Reason: Heartburn or Indigestion Albuterol/Ipratropium (Duoneb) 3 ml NEB [id number] [facility] Last Admin: 02/16/17 07:42 Dose: 3 ml Lipase/Protease/Amylase ([place] [id number]) 1 cap FS .PER PROTOCOL PRN PRN Reason: TUBE OCCLUSION PROTOCOL Bisacodyl (Dulcolax) 10 mg PO DAILYPRN PRN PRN Reason: Constipation Bisacodyl (Dulcolax) 10 mg PO DAILYPRN PRN PRN Reason: Constipation Calcium Carbonate (Tums) 1,000 mg PO Q4H PRN PRN Reason: Heartburn or Indigestion Enoxaparin Sodium (Lovenox) 30 mg SC 0900 [facility] Last Admin: 02/16/17 10:45 Dose: 30 mg Famotidine (Pepcid) 20 mg SLOW IVP DAILY [facility] Last Admin: 02/16/17 10:34 Dose: 20 mg Furosemide (Lasix) 20 mg SLOW IVP DAILY [facility] Stop: 02/18/17 09:01 Potassium Chloride 40 meq/ (Sodium Chloride) 270 mls @ 135 mls/hr IVPB ASDIR PRN PRN Reason: FOR SERUM K+ 2.5 - 3.5 Last Admin: 02/14/17 06:36 Dose: 270 mls Potassium Chloride 40 meq/ (Device) 100 mls @ 50 mls/hr IVPB ASDIR PRN PRN Reason: FOR SERUM K+ 2.5 - 3.5 Magnesium Sulfate 1 gm/ Sodium (Chloride) 102 mls @ 102 mls/hr IV PRN PRN PRN Reason: MAG LEVEL 1.4 - 2.0 Magnesium Sulfate 2 gm/ Device 100 mls @ 100 mls/hr IVPB ASDIR PRN PRN Reason: MAGNESIUM < 1.4 Potassium Phosphate 9 mmol/ (Sodium Chloride) 103 mls @ 25.75 mls/hr IVPB ASDIR PRN PRN Reason: Phosphate 1.0-1.8 Potassium Phosphate 12 mmol/ (Sodium Chloride) 254 mls @ 63.5 mls/hr IV ASDIR PRN PRN Reason: Serum phosphate 0.5-0.9 Potassium Phosphate 15 mmol/ (Sodium Chloride) 255 mls @ 63.75 mls/hr IV ASDIR PRN PRN Reason: Serum Phos < 0.5 Piperacillin Sod/Tazobactam (Sod 3.375 gm/ Sodium Chloride) 100 mls @ 200 mls/ hr IVPB Q6HR [facility] Last Admin: 02/16/17 14:12 Dose: 100 mls Potassium Chloride 40 meq/ (Dextrose/Water) 1,020 mls @ 100 mls/hr IV .[id number] [facility] Last Admin: 02/16/17 10:34 Dose: 1,020 mls Magnesium Sulfate 4 gm/ Sodium (Chloride) 258 mls @ 86 mls/hr IVPB NOW [facility] Stop: 02/16/17 18:14 Potassium Chloride 40 meq/ (Sodium Chloride) 520 mls @ 130 mls/hr IVPB NOW [facility] Stop: 02/16/17 19:14 Potassium Phosphate 30 mmol/ (Sodium Chloride) 510 mls @ 83.3 mls/hr IVPB NOW [facility] Stop: 02/16/17 21:23 Labetalol HCl (Normodyne) 20 mg SLOW IVP Q15MIN PRN PRN Reason: SBP GREATER THAN 160 Magnesium Hydroxide (Milk Of Magnesium) 30 ml PO Q8H PRN PRN Reason: Constipation Magnesium Oxide (Magnesium Oxide) 400 mg PO BIDPRN PRN PRN Reason: FOR SERUM MAG 1.4 - 2.0 Magnesium Oxide (Magnesium Oxide) 800 mg PO PRN PRN PRN Reason: FOR SERUM MAG < 1.4 Mineral Oil/White Petrolatum (Lacri-Lube Ointment) 0 gm EA EYE PRN PRN PRN Reason: Dry Eyes Miscellaneous Medication (Phos-Nak) 1 pkt PO TIDPRN PRN PRN Reason: FOR PHOS LEVEL 1.0 - 1.8 Miscellaneous Medication (Phos-Nak) 2 pkt PO TIDPRN PRN PRN Reason: FOR PHOS LEVEL 0.5 - 1.0 Morphine Sulfate (Morphine) 2 mg SLOW IVP Q2H PRN PRN Reason: Breakthrough pain Stop: 03/15/17 17:56 Discontinue Previous Narcotic Pain Medications And Benzodiazepines 1 each FS .ONE [facility] Stop: 03/15/17 17:56 Ondansetron HCl (Zofran) 4 mg IVP Q6H PRN PRN Reason: Nausea/Vomiting Ondansetron HCl (Zofran) 4 mg IVP Q6H PRN PRN Reason: Nausea/Vomiting Potassium Chloride (K-Dur) 40 meq PO ASDIR PRN PRN Reason: FOR SERUM K+ 2.5 - 3.5 Potassium Chloride (Klor-Con) 40 meq PER TUBE ASDIR PRN PRN Reason: FOR SERUM K+ 2.5-3.5 Potassium Chloride (Klor-Con) 40 meq PO NOW [facility] Stop: 02/16/17 16:45 Prednisone (Prednisone) 20 mg PO QA-[facility] Last Admin: 02/16/17 10:34 Dose: 20 mg Propofol (Diprivan) 1,000 mg IV INF PRN; Protocol PRN Reason: TO ACHIEVE SANDY SCORE 2-3 Stop: 03/15/17 17:56 Senna (Senokot) 2 tab PO HSPRN PRN PRN Reason: Constipation Sodium Bicarbonate (Bicarbonate, Sodium) 650 mg PER TUBE .PER PROTOCOL PRN PRN Reason: ENTERAL TUBE OCCLUSION Sodium Chloride (Flush - Normal Saline) 10 ml IVF PRN PRN PRN Reason: Saline Flush
--- NOTE | 2017-02-16 14:52 | PRG ---
DATE OF SERVICE: 02/16/2017 SERVICE: Pulmonary Medicine. INTERVAL HISTORY: The patient is doing fine from a respiratory standpoint. She has got increasing c ongestion today. Otherwise, there has been no interval change to her condition. PHYSICAL EXAMINATION: VITAL SIGNS: Afebrile, pulse 95, blood pressure 118/49, respirations 21 and saturation 98% on room a ir. GENERAL: The patient is awake and alert. No apparent distress. LUNGS: Decent air entry. Rhonchi are present. No prolonged expiratory phase. No crackles or wheez ing. HEART: Normal rate and regular. ABDOMEN: Soft, nontender and nondistended. Bowel sounds are positive. MUSCULOSKELETAL: No cyanosis or clubbing. There is trace to 1+ pitting in the bilateral lower extre mities. GENITOURINARY: No Lopez. NEUROLOGIC: Grossly nonfocal. LABORATORY DATA: WBC 21.9, hemoglobin 9.2 and platelets 147,000 and up trending. PH 7.45, pCO2 of 2 5. Potassium 3.7, sodium 152. Chloride 122 and up trending. Basic metabolic profile is otherwise u nremarkable. Phosphorus is 2.1. Magnesium 1.8. Influenza A and B is unremarkable. One out of two cultures growing coag negative staph. ASSESSMENT: 1. Acute hypoxic respiratory failure. 2. Healthcare-associated pneumonia. 3. Pleural effusion. 4. Severe sepsis. 5. Severe protein-calorie malnutrition. 6. Hypernatremia. 7. Debility. 8. Deconditioning. 9. Failure to thrive. 10. Possible refeeding syndrome. PLAN: We will continue our tube feeds. Magnesium, phosphorus and potassium will all aggressively be replaced. We will leave her on mechanical ventilation over the next 24-48 hours. Hopefully, she wi ll start to clear her inflammatory profile. If she does not, thoracentesis may need to be considered . CRITICAL CARE TIME: 30 minutes.
[2017-02-16] MEDS ORDERED: Potassium Phosphate 30 MMOL in Sodium Chloride 0.9% 500 ML IVPB SCH (15:15)
[2017-02-16] MEDS ORDERED: Magnesium Sulfate 4 GM in Sodium Chloride 0.9% 250 ML 250 ML IVPB SCH (15:15)
[2017-02-16] MEDS ORDERED: Potassium Chloride 40 MEQ in Sodium Chloride 0.9% 500 ML IVPB SCH (15:15)
[2017-02-16 15:42] LABS: Anion Gap 12 mmol/L (10-20); BUN (Urea Nitrogen) 17 mg/dL (9.8-20.1); Calc. Creatinine Clearance 48 mL/min (70-130); Calcium 7.9 mg/dL (7.8-10.44); Carbon Dioxide 18 mmol/L (23-31); Chloride 121 mmol/L (98-107); Estimated GFR-MDRD Greater than 90; Glucose 91 mg/dL (83-110); Potassium 3.2 mmol/L (3.5-5.1); Sodium 148 mmol/L (136-145)
--- NOTE | 2017-02-16 22:54 | PRG ---
DATE OF SERVICE: 02/16/2017 SUBJECTIVE: The patient was seen and examined, still on life support noted with the following vital signs. OBJECTIVE: VITAL SIGNS: Blood pressure 112/57, pulse of 99, respiratory rate of 29, O2 saturation 100% on vent, temperature maximum of 100.8. HEENT: Remarkable for endotracheal tube in place. CARDIOVASCULAR: First and second heart sounds were heard. RESPIRATORY: Revealed vented sounds. DIGESTIVE: Revealed a benign abdomen with positive bowel sounds. EXTREMITIES: No significant peripheral edema. NEUROLOGIC: The patient is sedated and intubated. LABORATORY INVESTIGATIONS: Sodium of 152, potassium of 2.7. IMPRESSION: 1. Hypernatremia in the context of free water deficit. 2. Hypokalemia. 3. Cardiopulmonary failure. PLAN: 1. We will increase free water repletion in this patient. 2. Replete potassium. 3. Further management to be dependent on the clinical course.
[2017-02-17] MEDS: Potassium Chloride 40 MEQ in Dextrose 5% in Water 1,000 ML IV SCH ×6 (00:19→17:01)
[2017-02-17] MEDS: Piperacillin/Tazobactam 3.375 GM in Sodium Chloride 0.9% 100 ML IVPB SCH ×4 (00:19→17:48)
[2017-02-17 05:43] LABS: Band 2 % (5-11); Hemoglobin 9.3 g/dL (12.0-16.0); Lymphocytes 2 % (21-51); MDiff Complete? YES; Mean Corpuscular Hemoglobin 29.2 pg (27.0-31.0); Mean Corpuscular Volume 88.6 fl (81.0-99.0); Mean Platelet Volume 10.4 fL (7.4-10.4); Monocytes 5 % (0-10); Neutrophil 91 % (42-75); Platelet Count 153 thou/uL (130-400); Red Blood Cell (RBC) Count 3.19 mill/uL (4.20-5.40); White Blood Cell (WBC) Count 13.3 thou/uL (4.8-10.8)
[2017-02-17 06:52] LABS: Anion Gap 11 mmol/L (10-20); BUN (Urea Nitrogen) 17 mg/dL (9.8-20.1); Calc. Creatinine Clearance 52 mL/min (70-130); Calcium 8.3 mg/dL (7.8-10.44); Carbon Dioxide 21 mmol/L (23-31); Chloride 119 mmol/L (98-107); Estimated GFR-MDRD Greater than 90; Glucose 134 mg/dL (83-110); Phosphorus 3.5 mg/dL (2.3-4.7); Potassium 4.2 mmol/L (3.5-5.1); Sodium 147 mmol/L (136-145)
[2017-02-17] MEDS: Enoxaparin Sodium 30 MG/0.3 ML SYRINGE SC SCH (09:17)
[2017-02-17] MEDS: predniSONE 20 MG TAB PO SCH (09:17)
[2017-02-17] MEDS: Famotidine/PF 20 mg/2ml Vial SLOW IVP SCH (09:17)
[2017-02-17] MEDS: Furosemide 20 MG/2 ML VIAL SLOW IVP SCH (09:18)
--- NOTE | 2017-02-17 15:47 | PDOC.PN ---
- Subjective Encounter Start Date: 02/17/17 Encounter Start Time: 15:46 Subjective: opens eyes w verbal stimuli but falls asleep -: does not track or shows recognition -: family at bedside - Objective MAR Reviewed: Yes Vital Signs & Weight: Vital Signs (12 hours) Temp Pulse Resp BP Pulse Ox 02/17/17 14:00 17 02/17/17 13:55 94 144/64 H 02/17/17 13:51 96 20 99 02/17/17 12:00 19 02/17/17 11:29 87 123/59 L 02/17/17 10:00 23 H 02/17/17 08:00 99.3 F 97 23 H 94 L 02/17/17 07:34 90 160/80 H 02/17/17 07:29 91 23 H 98 02/17/17 06:00 22 H 02/17/17 04:00 21 H Weight Admit Weight 76 lb Weight 99 lb 13.91 oz Most Recent Monitor Data Heart Rate from ECG 100 NIBP 112/73 NIBP BP-Mean 81 Respiration from ECG 16 SpO2 96 I&O: 02/16/17 02/17/17 02/18/17 06:59 06:59 06:59 Intake Total 2450 2813 100 Output Total 1283 1665 1420 Balance 1167 1148 -1320 Result Diagrams: 02/17/17 04:45 02/17/17 04:45 Additional Labs: Microbiology 02/13/17 21:31 Nasopharynx Influenza Types A,B Direct EIA - Final 02/13/17 16:47 Venous blood - Right Foot Blood Culture - Final Coagulase Neg Staphylococcus 02/13/17 16:47 Venous blood - Left Foot Blood Culture - Preliminary NO GROWTH AT 48 HOURS Phys Exam - Physical Examination Constitutional: NAD HEENT: PERRLA, sclera anicteric, oral pharynx no lesions dry mucosa Neck: no JVD Respiratory: no wheezing, no rales, no rhonchi decreased at bases Cardiovascular: RRR, no significant murmur Gastrointestinal: soft, non-tender, no distention, positive bowel sounds Musculoskeletal: no edema, pulses present Deviation from normal: encephalopathic Skin: no rash Dx/Plan (1) Acute respiratory failure Code(s): J96.00 - ACUTE RESPIRATORY FAILURE, UNSP W HYPOXIA OR HYPERCAPNIA Status: Acute (2) Sepsis Code(s): A41.9 - SEPSIS, UNSPECIFIED ORGANISM Status: Acute (3) PNA (pneumonia) Code(s): J18.9 - PNEUMONIA, UNSPECIFIED ORGANISM Status: Acute Qualifiers: Pneumonia type: aspiration pneumonia Laterality: bilateral (4) Hypernatremia Code(s): E87.0 - HYPEROSMOLALITY AND HYPERNATREMIA Status: Acute (5) Hypokalemia Code(s): E87.6 - HYPOKALEMIA Status: Acute (6) CARLOS (acute kidney injury) Code(s): N17.9 - ACUTE KIDNEY FAILURE, UNSPECIFIED Status: Acute (7) Hypoglycemia Code(s): E16.2 - HYPOGLYCEMIA, UNSPECIFIED Status: Acute (8) Parkinson disease Code(s): G20 - PARKINSON'S DISEASE Status: Acute (9) Encephalopathy Code(s): G93.40 - ENCEPHALOPATHY, UNSPECIFIED Status: Acute - Plan plan discussed w/ family, ravi catheter, continue antibiotics, respiratory therapy, incentive spirometry, DVT proph w/SCDs cont full supportive care as per family wishes.Will need Trach/PEG/LTACH -: cont empiric ABx.IVF -: sodium and Cr improved.nephrology following.D5W w Kcl. -: check am labs.HD stable. -: remains full code * . Review of Systems - Review of Systems Other: unobtainable due to intubation & encephalopathy - Medications/Allergies Allergies/Adverse Reactions: Allergies Allergy/AdvReac Type Severity Reaction Status Date / Time No Known Drug Allergies Allergy Verified 02/13/17 17:26 Medications: Current Medications Acetaminophen (Tylenol) 650 mg PO Q4H PRN PRN Reason: Headache/Fever or Pain Last Admin: 02/17/17 09:59 Dose: 650 mg Acetaminophen (Tylenol) 650 mg OH Q4H PRN PRN Reason: Headache/Fever or Pain Last Admin: 02/15/17 01:22 Dose: 650 mg Al Hydroxide/Mg Hydroxide (Maalox) 30 ml PO Q8H PRN PRN Reason: Indigestion Al Hydroxide/Mg Hydroxide (Maalox) 30 ml PO Q6H PRN PRN Reason: Heartburn or Indigestion Albuterol/Ipratropium (Duoneb) 3 ml NEB [id number] DIPAK Last Admin: 02/17/17 13:51 Dose: 3 ml Lipase/Protease/Amylase ([place] [id number]) 1 cap FS .PER PROTOCOL PRN PRN Reason: TUBE OCCLUSION PROTOCOL Bisacodyl (Dulcolax) 10 mg PO DAILYPRN PRN PRN Reason: Constipation Bisacodyl (Dulcolax) 10 mg PO DAILYPRN PRN PRN Reason: Constipation Calcium Carbonate (Tums) 1,000 mg PO Q4H PRN PRN Reason: Heartburn or Indigestion Enoxaparin Sodium (Lovenox) 30 mg SC 0900 [facility] Last Admin: 02/17/17 09:17 Dose: 30 mg Famotidine (Pepcid) 20 mg SLOW IVP DAILY [facility] Last Admin: 02/17/17 09:17 Dose: 20 mg Furosemide (Lasix) 20 mg SLOW IVP DAILY [facility] Stop: 02/18/17 09:01 Last Admin: 02/17/17 09:18 Dose: 20 mg Potassium Chloride 40 meq/ (Sodium Chloride) 270 mls @ 135 mls/hr IVPB ASDIR PRN PRN Reason: FOR SERUM K+ 2.5 - 3.5 Last Admin: 02/14/17 06:36 Dose: 270 mls Potassium Chloride 40 meq/ (Device) 100 mls @ 50 mls/hr IVPB ASDIR PRN PRN Reason: FOR SERUM K+ 2.5 - 3.5 Magnesium Sulfate 1 gm/ Sodium (Chloride) 102 mls @ 102 mls/hr IV PRN PRN PRN Reason: MAG LEVEL 1.4 - 2.0 Magnesium Sulfate 2 gm/ Device 100 mls @ 100 mls/hr IVPB ASDIR PRN PRN Reason: MAGNESIUM < 1.4 Potassium Phosphate 9 mmol/ (Sodium Chloride) 103 mls @ 25.75 mls/hr IVPB ASDIR PRN PRN Reason: Phosphate 1.0-1.8 Potassium Phosphate 12 mmol/ (Sodium Chloride) 254 mls @ 63.5 mls/hr IV ASDIR PRN PRN Reason: Serum phosphate 0.5-0.9 Potassium Phosphate 15 mmol/ (Sodium Chloride) 255 mls @ 63.75 mls/hr IV ASDIR PRN PRN Reason: Serum Phos < 0.5 Piperacillin Sod/Tazobactam (Sod 3.375 gm/ Sodium Chloride) 100 mls @ 200 mls/ hr IVPB Q6HR [facility] Last Admin: 02/17/17 12:35 Dose: 100 mls Potassium Chloride 40 meq/ (Dextrose/Water) 1,020 mls @ 100 mls/hr IV .[id number] [facility] Last Admin: 02/17/17 06:46 Dose: Not Given Labetalol HCl (Normodyne) 20 mg SLOW IVP Q15MIN PRN PRN Reason: SBP GREATER THAN 160 Magnesium Hydroxide (Milk Of Magnesium) 30 ml PO Q8H PRN PRN Reason: Constipation Magnesium Oxide (Magnesium Oxide) 400 mg PO BIDPRN PRN PRN Reason: FOR SERUM MAG 1.4 - 2.0 Magnesium Oxide (Magnesium Oxide) 800 mg PO PRN PRN PRN Reason: FOR SERUM MAG < 1.4 Mineral Oil/White Petrolatum (Lacri-Lube Ointment) 0 gm EA EYE PRN PRN PRN Reason: Dry Eyes Miscellaneous Medication (Phos-Nak) 1 pkt PO TIDPRN PRN PRN Reason: FOR PHOS LEVEL 1.0 - 1.8 Miscellaneous Medication (Phos-Nak) 2 pkt PO TIDPRN PRN PRN Reason: FOR PHOS LEVEL 0.5 - 1.0 Morphine Sulfate (Morphine) 2 mg SLOW IVP Q2H PRN PRN Reason: Breakthrough pain Stop: 03/15/17 17:56 Discontinue Previous Narcotic Pain Medications And Benzodiazepines 1 each FS .ONE [facility] Stop: 03/15/17 17:56 Ondansetron HCl (Zofran) 4 mg IVP Q6H PRN PRN Reason: Nausea/Vomiting Ondansetron HCl (Zofran) 4 mg IVP Q6H PRN PRN Reason: Nausea/Vomiting Potassium Chloride (K-Dur) 40 meq PO ASDIR PRN PRN Reason: FOR SERUM K+ 2.5 - 3.5 Potassium Chloride (Klor-Con) 40 meq PER TUBE ASDIR PRN PRN Reason: FOR SERUM K+ 2.5-3.5 Prednisone (Prednisone) 20 mg PO QAM-WM [facility] Last Admin: 02/17/17 09:17 Dose: 20 mg Propofol (Diprivan) 1,000 mg IV INF PRN; Protocol PRN Reason: TO ACHIEVE SANDY SCORE 2-3 Stop: 03/15/17 17:56 Senna (Senokot) 2 tab PO HSPRN PRN PRN Reason: Constipation Sodium Bicarbonate (Bicarbonate, Sodium) 650 mg PER TUBE .PER PROTOCOL PRN PRN Reason: ENTERAL TUBE OCCLUSION Sodium Chloride (Flush - Normal Saline) 10 ml IVF PRN PRN PRN Reason: Saline Flush
[2017-02-17 15:57] VITALS: BMI 17.6
--- NOTE | 2017-02-17 22:00 | HP ---
HISTORY OF PRESENT ILLNESS: Janey Parisi is an 86-year-old female with severe Parkinson's and resp iratory failure. I have been asked by Dr. Carreno to place a PEG tube and a tracheostomy tube. The kristian bustos's wants FULL CODE and wants to live 5 more years. Plan is to perform tracheostomy tube and PEG tube tomorrow. The patient has been admitted to the hospitalist service because she was cho korey on food. She has a past history of Parkinson disease, strokes, TIAs and is transferred from the [facility]. The patient has been on no thickened pureed diet, but has had episodes of ch oking on food and brought to the emergency room. PAST MEDICAL HISTORY: Parkinson disease, history of stroke, TIAs and nonambulatory. PAST SURGICAL HISTORY: Unable to obtain from the patient. FAMILY HISTORY: Her denies having any prior surgeries. TOBACCO: None. ALCOHOL: None. PHYSICAL EXAMINATION: GENERAL: The patient is intubated. She has a left arm contracture. VITAL SIGNS: Heart rate 104 and blood pressure 122/51. LUNGS: Clear to auscultation. CARDIAC: Regular rate and rhythm without murmur or gallop. No wheezing. ABDOMEN: Soft and nondistended. No scars. EXTREMITIES: Unremarkable. LABORATORY DATA: White count 13, hemoglobin 9.3. Basic metabolic profile, normal. Renal function, normal. ASSESSMENT AND PLAN: 1. Respiratory failure, on ventilator. Plan tracheostomy tube. 2. Swallowing difficulty. Plan percutaneous endoscopic gastrostomy tube. Overall, prognosis is poor.
[2017-02-18] MEDS: Piperacillin/Tazobactam 3.375 GM in Sodium Chloride 0.9% 100 ML IVPB SCH ×3 (00:20→13:24)
--- NOTE | 2017-02-18 02:10 | PRG ---
DATE OF SERVICE: 02/17/2017 SUBJECTIVE: Ms. Parisi was evaluated today. Her was at the bedside. She opened her eyes more. She did not follow commands. OBJECTIVE: VITAL SIGNS: Heart rate 74, blood pressure 122/51, respiratory rate 23. She is afebrile. LUNGS: Remarkable for coarse equal breath sounds. HEART: Regular rhythm. ABDOMEN: Soft. Intake 2813, output 1665. LABORATORY DATA: White count 13.3, hemoglobin 9.3. Sodium 147, potassium 4.2, chloride 119, bicarb 21, BUN 17, creatinine 0.55 with a baseline creatinin e 3.3-3.4. IMPRESSION:. The patient has end of life dementia with aspiration pneumonia with swallowing dysfunct ion for over a month. We again talked about end of life issues. Her told me that he talked to his optical brightener maker helper, and his optical brightener maker helper said do everything possible to keep her alive and that is what he wants to do. We had a 20-minute discussion about this and I actually told him I thought this was cruel to keep her here just so he is not quitting. She presents with multiple decubitus ulcers from the [facility] home with a history of 1 month of aspiration. She is fed only Boost and weighs 99 pounds. I have explained to him also that if he wants to get her down the road as far as possible, a tracheos tori and a PEG will give her the greatest chance of not having respiratory failure with aspiration ag ain and getting adequate nutrition, although she will not gain in the muscle mass that she is complet yves inactive. That is the path he wants to take, so General Surgery has been consulted. He declines to make her DNR, even though I told him that we will break all of her ribs if she had chest compress ions. 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 Critical care time 30 minutes.
[2017-02-18] MEDS: Potassium Chloride 40 MEQ in Dextrose 5% in Water 1,000 ML IV SCH ×4 (02:14→18:35)
[2017-02-18 06:02] LABS: Anion Gap 12 mmol/L (10-20); BUN (Urea Nitrogen) 13 mg/dL (9.8-20.1); Calc. Creatinine Clearance 49 mL/min (70-130); Calcium 9.2 mg/dL (7.8-10.44); Carbon Dioxide 23 mmol/L (23-31); Chloride 112 mmol/L (98-107); Estimated GFR-MDRD Greater than 90; Glucose 81 mg/dL (83-110); Magnesium 1.9 mg/dL (1.6-2.6); Potassium 4.3 mmol/L (3.5-5.1); Sodium 143 mmol/L (136-145)
[2017-02-18 06:19] LABS: Band 8 % (5-11); Hemoglobin 10.1 g/dL (12.0-16.0); Lymphocytes 10 % (21-51); MDiff Complete? YES; Mean Corpuscular HGB CONC 31.4 g/dL (32.0-36.0); Mean Corpuscular Hemoglobin 27.9 pg (27.0-31.0); Mean Corpuscular Volume 89.1 fl (81.0-99.0); Mean Platelet Volume 9.9 fL (7.4-10.4); Neutrophil 82 % (42-75); Platelet Count 191 thou/uL (130-400); RBC Distribution Width 14.1 % (11.5-14.5); Red Blood Cell (RBC) Count 3.62 mill/uL (4.20-5.40)
[2017-02-18] MEDS: Enoxaparin Sodium 30 MG/0.3 ML SYRINGE SC SCH (11:05)
[2017-02-18] MEDS: Furosemide 20 MG/2 ML VIAL SLOW IVP SCH (11:06)
[2017-02-18] MEDS ORDERED: Sodium Chloride 0.9% 1,000 ML IV SCH ×2 (12:15)
[2017-02-18] MEDS ORDERED: Fentanyl 100 MCG/2 ML VIAL ONE (12:53)
[2017-02-18] MEDS ORDERED: Bupivacaine/Epinephrine 0.25% 30 ML VIAL ONE (13:04)
--- NOTE | 2017-02-18 13:19 | PRG ---
DATE OF SERVICE: 02/18/2017 SUBJECTIVE: Mr. Parisi has decided that he wants her. Ms. Parisi would be a DO NOT RESUSCITATE patient, but still want to proceed with tracheostomy and PEG placement. PHYSICAL EXAMINATION: VITAL SIGNS: Her blood pressure is running in the 90s. Heart rate is in the 90s, oximetry is 94%. GENERAL: She opens her eyes. She is not following commands. LUNGS: Remarkable for coarse equal breath sounds. HEART: Regular rhythm. ABDOMEN: Soft. EXTREMITIES: Without asymmetry. LABORATORY DATA AND IMAGING DATA: Intake and output is negative 202. I just ordered a saline bolus. White count 21, hemoglobin 10.1, platelets 191,000. Sodium 143, potassium 4.3, chloride 112, bicarbonate 22, BUN 13, creatinine 0.58. She will have a chest radiograph done after tracheostomy. I will review this. IMPRESSION: 1. Aspiration pneumonia on top of chronic aspiration. 2. Extreme weakness and deconditioning. 3. Dementia. 4. Chronic respiratory failure with acute decompensation. 5. Chronic kidney disease with acute decompensation that has improved with hydration. Her pressure support and tidal volumes were very small. Even with a tracheostomy, I have explained t o the that her weakness may prevent her from surviving this. She wants her to be a DO NOT RE SUSCITATE patient. We will continue with aggressive care. According to the 's wishes, joseph whitt I suspect her short term mortality is extremely high. I have relayed this to him and his brother every time I have met with them on a daily basis. Critical care time 30 minutes.
[2017-02-18] MEDS: Famotidine/PF 20 mg/2ml Vial SLOW IVP SCH (13:24)
[2017-02-18] MEDS ORDERED: PHENYLEPHRINE-NS 100 MCG/ML 10 ML SYRINGE ONE (15:00)
[2017-02-18] MEDS ORDERED: Glycopyrrolate 0.2 MG/ML 5 ML SYRINGE ONE (15:00)
[2017-02-18] MEDS: predniSONE 20 MG TAB PO SCH (17:13)
--- NOTE | 2017-02-18 20:26 | PDOC.PN ---
- Subjective Encounter Start Date: 02/18/17 Encounter Start Time: 17:10 Subjective: f/u for acute/chronic resp failure s/p trach/PEG today. Plan for LTAC -: transfer once stabilized on current vent. Remains severely deconditioned - Objective Resuscitation Status: Resuscitation Status DNR:Do Not Resuscitate MAR Reviewed: Yes Vital Signs & Weight: Vital Signs (12 hours) Temp Pulse Resp BP Pulse Ox 02/18/17 19:12 77 16 97 02/18/17 19:09 81 02/18/17 18:00 17 02/18/17 16:00 97.8 F 17 02/18/17 14:58 103 H 119/53 L 02/18/17 14:55 100 26 H 96 02/18/17 12:00 99.7 F H 30 H 02/18/17 10:58 96 122/61 02/18/17 10:00 33 H Weight Admit Weight 76 lb Weight 97 lb 0.054 oz Most Recent Monitor Data Heart Rate from ECG 84 NIBP 95/39 NIBP BP-Mean 56 Respiration from ECG 20 SpO2 97 I&O: 02/17/17 02/18/17 02/19/17 06:59 06:59 06:59 Intake Total 2813 3663 1996 Output Total 1665 3865 1545 Balance 1148 -202 452 Result Diagrams: 02/18/17 05:00 02/18/17 05:00 Additional Labs: Laboratory Tests 02/15/17 02/16/17 02/16/17 04:44 05:15 05:15 WBC 12.7 H 21.9 H Sodium 152 H Potassium 2.7 L* 02/16/17 02/17/17 02/17/17 15:08 04:45 04:45 WBC 13.3 H Sodium 148 H 147 H Potassium 3.2 L 4.2 EKG Reviewed by me: Yes (Tele - SR in 80's) Phys Exam - Physical Examination ill-appearing Trach in place diminished in bases Cardiovascular: RRR PEG in place Gastrointestinal: soft, non-tender, no distention, positive bowel sounds Musculoskeletal: no edema, pulses present does not follow commands Skin: normal turgor, cap refill <2 seconds Deviation from normal: Lopez with clear urine Dx/Plan (1) Acute respiratory failure Code(s): J96.00 - ACUTE RESPIRATORY FAILURE, UNSP W HYPOXIA OR HYPERCAPNIA Status: Acute Qualifiers: Respiratory failure complication: hypoxia Qualified Code(s): J96.01 - Acute respiratory failure with hypoxia Comment: s/p Tracheostomy 02/19/16, continue vent mgmt per Pulmonology (2) Dysphagia Code(s): R13.10 - DYSPHAGIA, UNSPECIFIED Status: Chronic Qualifiers: Dysphagia type: oropharyngeal phase Qualified Code(s): R13.12 - Dysphagia, oropharyngeal phase Comment: s/p PEG placement (3) Encephalopathy Code(s): G93.40 - ENCEPHALOPATHY, UNSPECIFIED Status: Acute Comment: Multifactorial, persistent (4) Hypernatremia Code(s): E87.0 - HYPEROSMOLALITY AND HYPERNATREMIA Status: Acute Comment: Resolved (5) PNA (pneumonia) Code(s): J18.9 - PNEUMONIA, UNSPECIFIED ORGANISM Status: Acute Qualifiers: Pneumonia type: aspiration pneumonia Laterality: bilateral Comment: Continue Augmentin 875mg BID (6) Parkinson disease Code(s): G20 - PARKINSON'S DISEASE Status: Chronic (7) Sepsis Code(s): A41.9 - SEPSIS, UNSPECIFIED ORGANISM Status: Resolved Comment: Resolved - Plan continue antibiotics, PT/OT, social media developer, speech therapy, respiratory therapy, DVT proph w/SCDs Continue aggressive pulmonary support -: Nutritional support Jevity 1.2 15ml/h -: Prostat BID -: CM for LTAC options -: Code Status: DNR * Poor prognosis
--- NOTE | 2017-02-18 20:37 | OP ---
DATE OF PROCEDURE: 02/18/2017 PREOPERATIVE DIAGNOSES: Advanced Parkinson disease, dysphagia, aspiration pneumonia, respiratory edmar lure, ventilator dependent, FULL CODE. POSTOPERATIVE DIAGNOSES: Advanced Parkinson disease, dysphagia, aspiration pneumonia, respiratory fa ilure, ventilator dependent, FULL CODE. PROCEDURES PERFORMED: #8 Shiley low pressure cuff tracheostomy tube, percutaneous endoscopic gastros tori tube. SURGEON: Venkat Thayer M.D. ANESTHESIA: General. Local 0.25% Marcaine with epinephrine, 30 mL, mixed with 2% Xylocaine, 10 mL PROCEDURE: Patient taken to the operating room where under general anesthesia, neck and chest were p repared with chloraprep, draped in routine fashion. Local anesthetic infiltrated into skin and subcu taneous tissue about the operative site. Incision made transversely through the skin, subcutaneous t issue, platysma above the manubrium and carried down through the skin and subcutaneous tissue, platys ma, rising platysmal flaps inferiorly and superiorly and grasping the strap muscles, reflecting them laterally, making an incision in the midline and identifying the trachea below the cricoid, placing # 3-0 Prolene sutures on bilateral anterior lateral trachea strap sutures. Air knots tied and secured to skin with Op-Site and Mastisol. A midline tracheal window created excising trachea in the anterio r midline over two cartilaginous rings visually appreciated withdrawal endotracheal tube placed and # 8 Shiley low pressure cuffed tube into the trachea directly and connecting it to the ventilator infla ting the cuff and closed the skin with continuous suture of 3-0 Prolene on either side. Tracheostomy appliance secured to skin with 3-0 Prolene and sterile dressing applied. Endoscope placed per os under direct visualization and using air insufflation passed throughout the e sophagus and stomach, which was insufflated. A good indentation noted in the left subcostal and subx yphoid. The area prepared with ChloraPrep and incision made and trocar catheter placed percutaneousl y, visualized endoscopically within the gastric lumen and a snare placed around advancing it mary g the wire through the trocar into the stomach, grasped with snare and pulling out the mouth and lila ving the endoscope. The end of the feeding tube then secured to the wire, which was lubricated and p ulled back down through the mouth into the esophagus and fixated against the abdominal wall with a fi xation device and tailoring the tube to length and connecting the feeding device. Patient tolerated the procedure well.
[2017-02-18] MEDS: Amoxicillin/Potassium Clav 875 MG TAB PO SCH (20:46)
--- NOTE | 2017-02-18 21:34 | PRG ---
DATE OF SERVICE: 02/18/2017 SUBJECTIVE: She is seen and examined, status post trach and PEG, still requiring vent noted. PHYSICAL EXAMINATION: VITAL SIGNS: Afebrile, blood pressure is stable with heart rate of 92. HEENT: Remarkable for tracheostomy tube in place. CARDIOVASCULAR: First and second heart sounds were heard. RESPIRATORY: Reveals vented sounds. ABDOMEN: Digestive system revealed a benign abdomen. EXTREMITIES: No peripheral edema. LABORATORY INVESTIGATION: White count of 21,000. Chemistry showed sodium down to 143. IMPRESSION: 1. Hypernatremia in the context of free water deficit, which has since corrected status post free wa ter repletion. 2. Cardiopulmonary failure, status post trach and PEG. PLAN: 1. We will continue with free water repletion as tolerated. 2. Now that the patient has the PEG tube, GI tract can now be used to replete the water and deescala te the IV fluid, free water repletion.
[2017-02-19] MEDS: Potassium Chloride 40 MEQ in Dextrose 5% in Water 1,000 ML IV SCH ×2 (01:37)
[2017-02-19 07:21] VITALS: TEMP 100.4
[2017-02-19] MEDS ORDERED: Famotidine 20 MG TAB PER TUBE SCH (09:00)
[2017-02-19] MEDS: predniSONE 20 MG TAB PO SCH (09:32)
[2017-02-19] MEDS: Amoxicillin/Potassium Clav 875 MG TAB PO SCH (09:32)
[2017-02-19] MEDS: Enoxaparin Sodium 30 MG/0.3 ML SYRINGE SC SCH (09:38)
[2017-02-19 10:37] VITALS: BP 81/31
[2017-02-19] MEDS ORDERED: Metoclopramide 10 MG/10 ML UDCUP PO SCH (11:30)
--- NOTE | 2017-02-19 12:25 | DIS ---
DISCHARGE DIAGNOSES: 1. Acute hypoxic hypercapnic respiratory failure secondary to #2. 2. Right middle and lower lobe aspiration pneumonia. 3. Severe dysphagia, status post PEG tube placement. 4. Status post tracheostomy placement secondary to #1. 5. Sepsis syndrome secondarily to the aspiration pneumonia, improved. 6. Metabolic encephalopathy. 7. Hypernatremia, resolving. 8. Advanced Parkinson's disease. 9. Nonambulatory status. CONSULTATIONS: Dr. Carreno and Dr. Saldana with Pulmonology Service. Dr. Thayer with General Surgery Service. PERTINENT LAB AND X-RAY FINDINGS: Sodium ranged between 142-163. Potassium ranged between 2.5-4.9. Lactic acid level ranged between 4.2-4.5. Phosphorus ranged less than 1.0-3.5 magnesium level range d between 1.5-2.0, BNP 95. TSH 0.52. CBC showed a white blood cell count ranging between 12.7-24.8, hemoglobin ranged between 8.9-13.0. Blood cultures showed 1 out of 2 positive for coagulase negativ e Staphylococcus, likely skin contaminant. Influenza A and B antigen 02/13/2017 negative. Portable chest x-ray dated 02/13/2017 showed patchy infiltrates of the right lower lobe concerning for pneumon ia. Portable chest x-ray dated 02/14/2017 showed progressive bilateral parenchymal changes in the ri ght mid lung zone. Portable chest x-ray dated 02/15/2017 showed no significant change from previous exam. The lines and tubes in appropriate positioning. HOSPITAL COURSE: The patient was admitted to the Critical Care Unit after presenting with acute hypo xemic respiratory failure in the context of known chronic dysphagia and likely aspiration pneumonia w ith involvement of the right middle and lower lung zones. The patient was placed on broad spectrum I V antibiotic therapy and rapidly intubated in the emergency room due to severe respiratory distress. The patient received aggressive pulmonary support and was evaluated by the Critical Care Service. T he patient continued on mechanical ventilation throughout her hospital course and was unable to succe ssfully wean off mechanical ventilation. Due to patient's severe deconditioning, chronic dysphagia a nd overall deconditioned status discussions were had with the family regarding comfort care versus pl acement of a tracheostomy for long-term ventilation management. The family decided to pursue placeme nt of a tracheostomy which occurred on 02/18/2017. Due to patient's significant dysphagia and likely aspiration the patient underwent PEG tube placement as well on 02/18/2017, placed on tube feeds with Jevity 1.2 with a goal rate of 30 mL per hour. The patient was noted with a multitude of metabolic derangements and electrolyte disturbance correcting with IV fluid replacement, as well as potassium a nd phosphorus supplementation. The patient was deemed an appropriate candidate for ongoing aggressiv e care through long-term acute care and has been approved at [facility] [place], [place]. Overall, the patient is currently stable for transfer 02/19/2017. DISCHARGE MEDICATIONS: 1. Augmentin 875 mg per PEG tube q.12h., to continue 7 days after discharge. 2. Lovenox 30 mg subcutaneously daily. 3. DuoNeb 3 mL nebulized q.6h. p.r.n. 4. Reglan 10 mg per 10 mL per PEG tube a.c. and at bedtime. 5. Prednisone 20 mg 1 tab p.o. q.a.m. FOLLOWUP: The patient will follow up at [facility] on d ischarge 02/19/2017. SPECIAL INSTRUCTIONS: Ventilation rate with SIMV, rate of 2, PEEP of 5, pressure support of 5 with F IO2 of 27%. DIET: Jevity 1.2 per PEG tube at 30 mL per hour with 30 mL of water flushes q.2h. CODE STATUS: Do not resuscitate. DISPOSITION: Discharged to [facility] on 02/19/2017. Total time preparing and coordinating discharge was 37 minutes.
--- NOTE | 2017-02-20 00:04 | PRG ---
DATE OF SERVICE: 02/19/2017 Ms. Parisi was stable overnight. She is still mechanically ventilated. We have been decreasing ventilatory support. Hemodynamics are stable. OBJECITVE: LUNGS: Clear. HEART: Regular rhythm. ABDOMEN: Soft. IMPRESSION: 1. Chronic aspiration. Advanced debility with bedsores on presentation to hospital. 2. Chronic aspiration and chronic respiratory insufficiency. 3. Cachexia. 4. Dementia. 5. Status post trach and PEG per the 's request. PLAN: Long-term acute care and eventual placement back in a long term. I would keep her tracheostomy in for life unless the family decides they want this withdrawn and have no plans to ever reintubate her again. She is a DO NOT RESUSCITATE patient. The family was hesitant to sign an out of hospital DNR. Once the nurse spent a great deal of time explaining to him that this was continuation of what we have been doing in the hospital,they signed the document. She is stable for transfer to shelter acute care. I do personally feel this is a sad situation, but we have honored the 's wishes. SHARON
== END 2017-02-19 15:32 | DRG 4 ==
LOC: ERS 14:12 → CCU 17:17
PROVIDERS: ADMIT Internal Medicine; ATTEND Internal Medicine
PROC: 5A1955Z Respiratory Ventilation, Greater than 96 Consecutive Hours (ICD-10-PCS; 2017-02-13)
PROC: 0BH17EZ Insertion of Endotracheal Airway into Trachea, Via Natural or Artificial Opening (ICD-10-PCS; 2017-02-13)
PROC: 0B110F4 Bypass Trachea to Cutaneous with Tracheostomy Device, Open Approach (ICD-10-PCS; principal; 2017-02-18)
PROC: 0DH63UZ Insertion of Feeding Device into Stomach, Percutaneous Approach (ICD-10-PCS; 2017-02-18)
DX: A41.9 Sepsis, unspecified organism (principal); J69.0 Pneumonitis due to inhalation of food and vomit; E43 Unspecified severe protein-calorie malnutrition; J90 Pleural effusion, not elsewhere classified; G93.41 Metabolic encephalopathy; L89.152 Pressure ulcer of sacral region, stage 2; L89.154 Pressure ulcer of sacral region, stage 4; J96.01 Acute respiratory failure with hypoxia; E87.0 Hyperosmolality and hypernatremia; E87.2 Acidosis; R64 Cachexia; I24.8 Other forms of acute ischemic heart disease; Z68.1 Body mass index [BMI] 19.9 or less, adult; R13.12 Dysphagia, oropharyngeal phase; G20 Parkinson's disease; R65.20 Severe sepsis without septic shock; F02.80 Dementia in other diseases classified elsewhere, unspecified severity, without behavioral disturbance, psychotic disturbance, mood disturbance, and anxiety; Z66 Do not resuscitate; E87.6 Hypokalemia; R62.7 Adult failure to thrive; E16.2 Hypoglycemia, unspecified; Z86.73 Personal history of transient ischemic attack (TIA), and cerebral infarction without residual deficits; Z74.01 Bed confinement status; Z78.1 Physical restraint status; E86.0 Dehydration; D64.9 Anemia, unspecified
CPT/HCPCS: 31500; 36415; 36416; 51702; 71045; 80048; 80053; 81003; 81015; 82553; 82805; 83605; 83735; 83880; 84100; 84443; 84484; 85007; 85025; 85027; 87040; 87149; 93005; 94002; 94003; 94640; 94760; 96361; 96365; 96374; 96376; A4216; J1650; J1940; J1956; J2060; J2270; J2543; J2920; J3010; J3370; J3475; J3480; J7042; J7050; J7070; J7506; J7620; P9047; S0028